=== PATIENT | female | born 1995 | race Caucasian/White ===

== ENCOUNTER 2019-10-06 11:11 | Emergency (ER) | payer OTHER, SELFPAY ==
[2019-10-06 11:17] VITALS: BP 113/65; PULSE 103; RESP 16; TEMP 38.1; O2SAT 99
--- NOTE | 2019-10-06 11:28 | ED.URI ---
HPI - URI/Sore Throat General Chief Complaint: Upper Respiratory Infection Stated Complaint: sore throat/ear pain/baker/fever Time Seen by Provider: 10/06/19 11:28 Source: patient and RN notes reviewed History of Present Illness HPI Narrative: Patient is a 23-year-old female who presents the urgent care with complaints of fever, sore throat, bilateral ear pain and headache. Patient states that is been ongoing for approximately 3 days and she is used Tylenol and cough drops for symptoms. Denies any nausea or vomiting. No other acute complaints. No acute distress noted. Patient read the plan of care. Related Data Allergies Allergy/AdvReac Type Severity Reaction Status Date / Time No Known Allergies Allergy Verified 09/02/18 10:48 Review of Systems Review of Systems: Narrative: CONSTITUTIONAL: Reports a fever EYES: Denies visual changes, redness, or discharge. ENT: Reports of sore throat and bilateral ear pain CARDIOVASCULAR: Denies chest pain, palpitations, or edema. RESPIRATORY: Denies cough or dyspnea. GASTROINTESTINAL: Denies abdominal pain, nausea, vomiting, or diarrhea. GENITOURINARY: Denies dysuria or hematuria. SKIN: Denies rash or itching. MUSCULOSKELETAL: Denies back pain, joint pain, or myalgia. NEUROLOGIC: Reports of headaches All other systems reviewed are negative, except as documented in HPI. [facility] Family History Family History (Updated 03/27/19 @ 11:54 by DOCTOR UNKNOWN) Mother Family history of diabetes mellitus in first degree relative Diabetes mellitus Grandparent Diabetes mellitus Family history of elevated blood lipids Sibling Hypertension Social History Social History Smoking status: Never smoker Alcohol intake: never Comments At the time of my signature, I reviewed and agree with the nursing past medical, surgical, social, and family history. There is no relevant family history pertinent to the patient complaint. Exam Narrative: Exam Narrative: GENERAL: This is a well-nourished, well-developed patient, in no apparent distress. HEAD: normocephalic, atraumatic. EYES: PERRL. Sclera clear/white. Vision is grossly intact. EARS: External ears normal, auditory canals clear and without drainage, tube noted to the left and TMs normal without perforation. Moderate bulging and erythema noted to the right TM. Hearing grossly intact. NOSE: External nose normal with no obvious nasal discharge, nares without redness, no rhinorrhea. THROAT: Mucous membranes moist, moderate erythema noted posterior oropharynx with notable petechiae in bilateral mild to moderate tonsillar edema and erythema with moderate postnasal drainage. No exudate or ulceration. NECK: Neck supple, non-tender without lymphadenopathy, masses or thyromegaly. CARDIOVASCULAR: Regular rate and rhythm without murmurs, gallops, or rubs. RESPIRATORY: Clear to auscultation. Breath sounds equal bilaterally. No wheezes, rales, or rhonchi. SKIN: warm, intact with no suspicious lesions or rash, good texture and turgor. NEURO: awake, alert, and oriented to person, place and time. There were no obvious focal neurologic abnormalities. EXTREMITIES: No clubbing, cyanosis, or edema. Course Vital Signs Vital signs: Vital Signs Temperature 100.6 F H 10/06/19 11:17 Pulse Rate 103 H 10/06/19 11:17 Respiratory Rate 16 10/06/19 11:17 Blood Pressure 113/65 10/06/19 11:17 Pulse Oximetry 99 10/06/19 11:17 Temperature 100.6 F H 10/06/19 11:17 Pulse Rate 103 H 10/06/19 11:17 Respiratory Rate 16 10/06/19 11:17 Blood Pressure 113/65 10/06/19 11:17 Pulse Oximetry 99 10/06/19 11:17 Reviewed MDM - URI/Sore Throat MDM Narrative Medical decision making narrative: Reviewed lab results with the patient. Aware that strep swab was positive. Advised to complete antibiotic regimen as prescribed. Make sure you are eating and drinking with the medication. Use Tylenol as needed for fever pain. Increase fluids and rest. Stay home.
== END 2019-10-06 11:36 | disposition home or self-care (01) ==
PROVIDERS: Emergency Provider Nurse Practitioner Family; PCP Internal Medicine
DX: J02.0 Streptococcal pharyngitis (principal); H66.91 Otitis media, unspecified, right ear
CPT/HCPCS: 87880; 99213; G0463

== ENCOUNTER 2021-01-16 09:08 | Outpatient (RCR) | payer OTHER, SELFPAY | END 2021-04-14 23:59 | disposition home or self-care (01) | LOC: ANHLAB 09:08 | PROVIDERS: PCP Internal Medicine; Visit Provider Obstetrics & Gynecology | DX: O20.0 Threatened abortion (principal); Z3A.00 Weeks of gestation of pregnancy not specified | CPT/HCPCS: 36415; 84702; 85461 ==

== ENCOUNTER → 2021-03-12 03:19 | Outpatient (CLI) | payer OTHER, SELFPAY ==
[2021-03-12 20:01] LABS: SARS-CoV-2 RNA PCR Negative
== END ==
PROVIDERS: PCP Internal Medicine; Visit Provider Nurse Practitioner
DX: J02.9 Acute pharyngitis, unspecified (principal); Z20.822 Contact with and (suspected) exposure to COVID-19
CPT/HCPCS: C9803; U0003; U0005

== ENCOUNTER 2021-06-05 07:54 | Emergency (ER) | payer OTHER, SELFPAY ==
--- NOTE | ~2021-06-05 | US_ITS ---
EXAMINATION: US renal BI EXAM DATE: 06/05/2021 09:49 INDICATION: Right flank pain. TECHNIQUE: Multiple grayscale and Doppler images of the kidneys were obtained (by a technologist who performed the scan) and subsequently reviewed. Comparison is made to prior examination from 09/02/2018 . FINDINGS: Right kidney: There is normal contour and echogenicity. It measures 11.8 x 5.4 x 4.4 centimeters. T here are no focal renal lesions identified. There is suspicion of hyperechoic area identified at the right ureteropelvic junction measuring 7 mm, possible stone. This does not appear to be obstructing a t present given absence of hydronephrosis and also confirmation of right ureteral jet in the bladder. Left kidney: There is normal contour and echogenicity. It measures 11.6 x 5.9 x 6.0 centimeters. Th ere are no focal renal lesions identified. There is no hydronephrosis. Bladder unremarkable. Both ureteral jets were confirmed. IMPRESSION: Echogenic structure in right UPJ, possible nonobstructing or intermittently obstructing s tone. No hydronephrosis at present. Consider KUB or CT. Reviewed, dictated and finalized at location B. F INSPECTOR IMPRESSION: Echogenic structure in right UPJ, possible nonobstructing or interm ittently obstructing stone. No hydronephrosis at present. Consider KUB or CT.
[2021-06-05 08:09] VITALS: BP 115/70; PULSE 99; RESP 16; TEMP 36.3; O2SAT 99
[2021-06-05 08:34] LABS: Add Urine Microscopic? YES; Appearance Urine Cloudy (Clear); Bacteria Urine Trace /hpf; Bilirubin Urine Negative (Negative); Blood Urine 3+ (Negative); Color Urine Yellow (Yellow); Glucose Urine UA Negative (Negative); Ketones Urine Negative (Negative); Leukocyte Esterase Ur Negative LEU/UL (Negative); Mucus Urine Rare /lpf; Nitrate Urine Negative (Negative); Protein Urine Negative (Negative); RBC Urine >75 /hpf (0-2); Specific Grav Ur 1.005 (1.001-1.035); Squamous Epithelial Cell Urine Many /hpf (Few); Transitional Epi Cells Urine Rare /hpf (None Seen); Urobilinogen Urine Negative mg/dL (<2.0)
--- NOTE | 2021-06-05 09:42 | PC.NURSE ---
135 FHT RATE MIDLINE LOWER ABD
--- NOTE | 2021-06-05 10:37 | PC.NURSE ---
ATTEMPTED TO ST CATH PT X2 WITHOUT SUCCESS FOR NEW URINE SAMPLE. UNABLE TO OBTAIN SAMPLE. DR SHEEHAN AWARE AND OK WITH NOT ATTEMPTING AGAIN
--- NOTE | 2021-06-05 11:36 | ED.GENADULT ---
HPI - General Adult General Chief complaint: Back Pain/Injury Stated complaint: back pain, 27 weeks preg Time Seen by Provider: 06/05/21 07:58 History of Present Illness HPI narrative: Patient is a 25-year-old female who presents ER with right-sided back pain. Ongoing for the last day. Intermittent in nature and radiates into her upper/mid abdomen. Associated with waves of nausea. No vomiting. Denies fevers or chills or sweats. She does have positive movement. She is 27 weeks along in her . She has no vaginal bleeding or vaginal discharge or leakage of fluid. No dysuria or hematuria. Has not had symptoms like this previously. No history of kidney stones. Related Data Allergies Allergy/AdvReac Type Severity Reaction Status Date / Time No Known Allergies Allergy Verified 06/05/21 08:13 Review of Systems Review of Systems: All systems reviewed & are unremarkable except as noted in HPI and below Constitutional: Constitutional: Denies chills, Denies fever(s) and Denies weakness ENT: Denies nasal congestion and Denies sore throat Cardiovascular: Cardiovascular: Denies chest pain and Denies radiating jaw, neck or arm pain Gastrointestinal: Gastrointestinal: Reports abdominal pain, Reports nausea and Denies vomiting Genitourinary: Genitourinary: Denies hematuria, Denies nocturia, Denies dysuria and Reports flank pain PMFSH Past Medical History Medical History (Updated 06/05/21 @ 11:40 by Sheldon Calderon MD) Kidney stones Surgical History Surgical History (Updated 07/25/20 @ 10:08 by Jyothi Patel CMA) H/O removal of cyst lt wrist H/O removal of cyst foot History of placement of ear tubes Family History Family History (Updated 03/27/19 @ 11:54 by DOCTOR UNKNOWN) Mother Family history of diabetes mellitus in first degree relative Diabetes mellitus Grandparent Diabetes mellitus Family history of elevated blood lipids Sibling Hypertension Social History Social History (Updated 07/25/20 @ 10:35 by Jyothi Patel CMA) Smoking status: Current every day smoker Tobacco type: e-cigarettes/vaping Alcohol intake: never Exam Narrative: GENERAL: Well-appearing, well-nourished, and in no acute distress. HEAD: Normocephalic, atraumatic. CHEST: Clear to auscultation. No respiratory distress. HEART: Regular rate and rhythm. Normal peripheral pulses. ABDOMEN: Soft, nontender, gravid with positive movement. Back: Mild tenderness right paraspinal musculature near the T10. No midline tenderness. No CVA tenderness. EXTREMITIES: Normal range of motion. No edema. SKIN: Warm, dry, no rash. NEURO: Alert and oriented x3. PSYCH: Normal mood and affect. Course Course Emergency Course: Patient informed of diagnosis and treatment plan. Urology has been at bedside to discuss the details of treating a patient with kidney stones during . Plan is to be discharged home and if multiple recurrent visits ER patient will have a stent placed otherwise they will try to avoid placing a stent until she has her baby. Vital Signs Vital signs: Vital Signs Temperature 97.3 F L 06/05/21 08:09 Pulse Rate 99 06/05/21 08:09 Respiratory Rate 16 06/05/21 08:09 Blood Pressure 115/70 06/05/21 08:09 Pulse Oximetry 99 06/05/21 08:09 Temperature 97.3 F L 06/05/21 08:09 Pulse Rate 99 06/05/21 08:09 Respiratory Rate 16 06/05/21 08:09 Blood Pressure 115/70 06/05/21 08:09 Pulse Oximetry 99 06/05/21 08:09 Medical Decision Making Vital Signs Vital Signs: Vital Signs Temperature 97.3 F L 06/05/21 08:09 Pulse Rate 99 06/05/21 08:09 Respiratory Rate 16 06/05/21 08:09 Blood Pressure 115/70 06/05/21 08:09 Pulse Oximetry 99 06/05/21 08:09 Temperature 97.3 F L 06/05/21 08:09 Pulse Rate 99 06/05/21 08:09 Respiratory Rate 16 06/05/21 08:09 Blood Pressure 115/70 06/05/21 08:09 Pulse Oximetry 99 06/05/21 08:09 Lab Armen
[2021-06-05 11:45] VITALS: BP 112/70; PULSE 80; RESP 16
--- NOTE | 2021-06-05 13:36 | WPDURCON ---
Assessment and Plan Assessment and plan (1) Right renal stone: Code(s): N20.0 - Calculus of kidney Status: Acute Assessment and Plan: Gestational female with renal ultrasound showing a 7 mm right renal pelvic calculus that, currently, is nonobstructing. I had a long discussion with patient and her and told to do anticipate intermittent pain is this renal calculus intermittently obstructs. If the pain becomes intractable we will consider a stent placement. Otherwise, we will wait till she delivers for definitive stone intervention. Urology Consult Note HPI Date Seen: 06/05/21 Primary Care Provider: Cyrus Mg DO Consult Narrative Narrative: Annette Ayala is a 25 year old female, who is 27 weeks with her 3rd child, presenting to the emergency department with right flank pain nausea and vomiting. She has no prior known history of urolithiasis. Imaging in the ER with a renal ultrasound shows a nonobstructing 7 mm right renal pelvic calculus. Since presentation she has felt better with spontaneous resolution of both pain and discomfort. She has no prior history of recurrent urinary tract infection or gross hematuria. Review of Systems Cardiovascular: Cardiovascular: Denies chest pain, Denies lightheadedness, Denies palpitations and Denies dyspnea Respiratory: Respiratory: Denies dyspnea Gastrointestinal: Gastrointestinal: Denies diarrhea, Denies nausea and Denies vomiting Genitourinary: Genitourinary: Denies hematuria and Denies dysuria Endocrine: Endocrine: Denies palpitations PMFSH Past Medical History Medical History Kidney stones Surgical History Surgical History H/O removal of cyst lt wrist H/O removal of cyst foot History of placement of ear tubes Family History Family History Mother Family history of diabetes mellitus in first degree relative Diabetes mellitus Grandparent Diabetes mellitus Family history of elevated blood lipids Sibling Hypertension Social History Social History Smoking status: Current every day smoker Tobacco type: e-cigarettes/vaping Alcohol intake: never Meds Home Medications and Allergies Home Medications Medication Instructions Recorded Confirmed Type hydrocodone-acetaminophen 1 tablet PO Q6H PRN #20 tablet 06/05/21 Rx ondansetron 4 mg PO Q6H PRN #10 tablet 06/05/21 Rx Allergies Allergy/AdvReac Type Severity Reaction Status Date / Time No Known Allergies Allergy Verified 06/05/21 08:13 Vital Signs Vital Signs - 24 hr 06/05/21 08:09 06/05/21 11:45 Temperature 97.3 F L Pulse Rate 99 80 Respiratory Rate 16 16 Blood Pressure 115/70 112/70 Pulse Oximetry 99 Exam Const: General: no acute distress Resp: Effort & Inspection: normal respiratory effort GI: Inspection: non-distended GI Palp: No abdominal tenderness and No Guarding due to palpation present (GI) Auscultation: normal bowel sounds Results Labs Labs: Urine 06/05/21 Range/Units 08:14 Urine Color Yellow (Yellow) Urine Appearance Cloudy H (Clear) Urine pH 8.0 (5.0-9.0) Ur Specific Marcus 1.005 (1.001-1.035) Urine Protein Negative (Negative) mg/dL Urine Glucose (UA) Negative (Negative) mg/dL
== END 2021-06-05 11:45 | disposition home or self-care (01) ==
PROVIDERS: Emergency Provider Emergency Medicine; PCP Internal Medicine
DX: O99.891 Other specified diseases and conditions complicating pregnancy (principal); N20.0 Calculus of kidney; Z87.442 Personal history of urinary calculi; O99.332 Smoking (tobacco) complicating pregnancy, second trimester; F17.290 Nicotine dependence, other tobacco product, uncomplicated; Z3A.27 27 weeks gestation of pregnancy
CPT/HCPCS: 76775; 81001; 99284

== ENCOUNTER 2021-06-07 18:38 | Observation (INO) | payer OTHER, SELFPAY ==
--- NOTE | ~2021-06-07 | US_ITS ---
EXAMINATION: US retroperitoneal comp DATE: 06/08/2021 09:48 INDICATION: Kidney stone. TECHNIQUE: Multiple ultrasound grayscale images of the kidneys were obtained. COMPARISON: Ultrasound 06/05/2021 FINDINGS: The right kidney measures 9.0 x 4.9 x 4.4 cm. The left kidney measures 9.5 x 5.0 x 4.8 cm. The kidney s demonstrate normal parenchymal echogenicity. There is no hydronephrosis. The bladder is normal. Bradley ateral urine jets from the ureters are visualized. IMPRESSION: 1. Normal kidneys. No hydronephrosis. Reviewed, dictated and finalized at location B. WELDING MACHINE OPERATOR
[2021-06-07 18:50] VITALS: BP 128/73; PULSE 85; RESP 32; TEMP 36.8; O2SAT 100
--- NOTE | 2021-06-07 19:14 | PC.NURSE ---
Report received from CRISTO Gaytan. Assumed care of patient at this time.
[2021-06-07 19:23] LABS: Basophils Percent Auto 0.1 % (0.2-1.2); Eosinophils Percent Auto 0.1 % (0-4.4); Hematocrit 38.2 % (37.0-47.0); Hemoglobin 13.4 g/dL (12.0-15.0); Immature Granulocyte Absolute 0.05 K/mm3 (0.00-0.031); Immature Granulocyte Percent A 0.4 % (0-0.5); Lymphocytes Absolute Auto 1.55 K/mm3 (0.9-3.2); Mean Corpuscular HGB Conc 35.1 g/dl (32-36); Mean Corpuscular Hemoglobin 33.2 pg (26-34); Mean Corpuscular Volume 94.6 fl (80-100); Mean Platelet Volume 9.9 fl (7.4-10.4); Monocytes Absolute Auto 0.6 K/mm3 (0.1-0.6); Monocytes Percent Auto 4.5 % (2.6-8.5); Neutrophils Absolute Auto 11.8 K/mm3 (1.3-6.7); Neutrophils Percent Auto 83.9 % (45.5-73.1); Platelet Count Result 271 k/mm3 (150-375); Red Blood Count 4.04 M/mm3 (4.2-5.4); Red Cell Distribution Width 12.4 % (11.5-14.5); White Blood Count 14.1 K/mm3 (4.5-10.0)
--- NOTE | 2021-06-07 19:30 | PC.NURSE ---
call to OB per GARO Briseno request for OB RN to come to dept and monitor baby. OB to send staff over.
[2021-06-07 19:35] LABS: Anion Gap 9 mmol/L (8-16); Blood Urea Nitrogen 5 mg/dL (7-17); Calcium 9.2 mg/dL (8.4-10.2); Carbon Dioxide 23 mmol/L (22-30); Chloride 102 mmol/L (98-107); Estimated CRCL calculation 136 ml/min; Estimated Glomerular Filt Rate > 60; Glucose 93 mg/dL (65-110); Potassium 3.7 mmol/L (3.4-5.0); Sodium 134 mmol/L (137-145)
[2021-06-07] MEDS: SODIUM CHLORIDE 0.9% IV 1,000 ML 999 ML IV CONT (19:36)
[2021-06-07] MEDS: diphenhydrAMINE HCl INJ 50 MG/ML VIAL 25 MG IV PUSH (19:37)
[2021-06-07] MEDS: METOCLOPRAMIDE HCL INJ 10 MG/2 ML VIAL IV PUSH (19:37)
[2021-06-07] MEDS: FAMOTIDINE 20 MG/2 ML VIAL IV PUSH (19:37)
[2021-06-07 19:46] LABS: Alanine Aminotransferase 17 U/L (4-35); Albumin Level 3.9 g/dL (3.5-5.1); Alkaline Phosphatase 113 U/L (38-126); Aspartate Amino Transferase 22 U/L (14-36); Bilirubin,Total 0.4 mg/dL (0.2-1.3); Lipase 64 U/L (23-300)
[2021-06-07 20:12] VITALS: BP 119/75; PULSE 70; RESP 17; O2SAT 100
[2021-06-07 20:30] VITALS: BP 111/57; PULSE 69
--- NOTE | 2021-06-07 20:50 | ED.ABDPAIN ---
HPI - Abdominal Pain General Chief Complaint: Abdominal Pain <Suzanna Yarbrough PA-C - Last Filed: 06/07/21 21:49> Stated Complaint: abd pain <Suzanna Yarbrough PA-C - Last Filed: 06/07/21 21:49> Time Seen by Provider: 06/07/21 19:13 <Suzanna Yarbrough PA-C - Last Filed: 06/07/21 21:49> Source: patient <MARIA DEL CARMEN Ludwig Last Filed: 06/07/21 21:49> Mode of arrival: ambulatory <MARIA DEL CARMEN Ludwig Last Filed: 06/07/21 21:49> Limitations: no limitations <Suzanna Yarbrough PA-C - Last Filed: 06/07/21 21:49> History of Present Illness HPI narrative: This is a 25 year old , 27 weeks that presents to the ER for abdominal pain. Patient recently diagnosed with a ureteral stone 2 days ago. Reports worsening right flank pain since this morning. Reports she has had several episodes of nausea and vomiting. Since having vomiting she has also been having some crampy upper abdominal pain. She tried to take her [place] and Zofran before arrival and threw it up. Plan with Urology was originally to observe patient. Stent placement if pain becomes intractable. Patient denies fever or dysuria. <Suzanna Yarbrough PA-C - Last Filed: 06/07/21 21:49> Related Data Allergies/Adverse Reactions: Allergies Allergy/AdvReac Type Severity Reaction Status Date / Time No Known Allergies Allergy Verified 06/08/21 07:26 <Suzanna Yarbrough PA-C - Last Filed: 06/07/21 21:49> Review of Systems Review of Systems: CONSTITUTIONAL: Denies fever GASTROINTESTINAL: Reports abdominal pain, nausea, vomiting GENITOURINARY: Denies dysuria or hematuria. <MARIA DEL CARMEN Ludwig Last Filed: 06/07/21 21:49> All systems reviewed & are unremarkable except as noted in HPI and below <MARIA DEL CARMEN Ludwig Last Filed: 06/07/21 21:49> [facility] Past Medical History Medical History: Medical History Kidney stones <Suzanna Yarbrough PA-C - Last Filed: 06/07/21 21:49> Surgical History Surgical History: Surgical History H/O removal of cyst lt wrist H/O removal of cyst foot History of placement of ear tubes <Suzanna Yarbrough PA-C - Last Filed: 06/07/21 21:49> Family History Family History: Family History Mother Family history of diabetes mellitus in first degree relative Diabetes mellitus Grandparent Diabetes mellitus Family history of elevated blood lipids Sibling Hypertension <Suzanna Yarbrough PA-C - Last Filed: 06/07/21 21:49> Social History Social History: Social History Smoking status: Current every day smoker Tobacco type: e-cigarettes/vaping Alcohol intake: never Substance use: current Substance use type: marijuana Spiritual care concerns: No <MARIA DEL CARMEN Ludwig Last Filed: 06/07/21 21:49> Exam Narrative: GENERAL: Well-appearing, well-nourished, and in mild acute distress due to pain. HEAD: Normocephalic, atraumatic. EYES: EOMI. ENT: Mucous membranes moist. CHEST: Clear to auscultation. No respiratory distress. No wheezes rales or rhonchi HEART: Regular rate and rhythm. No murmur heard. Normal peripheral pulses. ABDOMEN: Gravid, nontender, normal active bowel sounds. No CVA tenderness EXTREMITIES: Normal range of motion. No edema. SKIN: Warm, dry, no rash. NEURO: No focal deficits. Alert and oriented x3. PSYCH: Normal mood and affect <MARIA DEL CARMEN Ludwig Last Filed: 06/07/21 21:49> Course Consultations Consultation #1: Spoke with Dr. Toledo about patient and workup who will admit patient for further observation and pain control. Okay with IV pain medications as needed <MARIA DEL CARMEN Ludwig Last Filed: 06/07/21 21:49> Date: 06/07/21 <Suzanna Yarbrough PA-C - Last Filed: 06/07/21 21:49> Time:
--- NOTE | 2021-06-07 20:55 | PC.NURSE ---
Patient ambulates to the bathroom with a steady gait. Patient states her pain is still there and requesting more pain medications. Suzanna JOYCE notified.
[2021-06-07 21:04] LABS: Add Urine Microscopic? YES; Appearance Urine Cloudy (Clear); Bilirubin Urine Negative (Negative); Blood Urine 2+ (Negative); Color Urine Yellow (Yellow); Glucose Urine UA Negative (Negative); Ketones Urine 1+ mg/dL (Negative); Leukocyte Esterase Ur Negative LEU/UL (Negative); Mucus Urine Rare /lpf; Nitrate Urine Negative (Negative); Protein Urine 1+ mg/dL (Negative); RBC Urine >75 /hpf (0-2); Specific Grav Ur 1.016 (1.001-1.035); Squamous Epithelial Cell Urine Occasional /hpf (Few); Urobilinogen Urine Negative mg/dL (<2.0)
[2021-06-07] MEDS: MORPHINE SULFATE (*CRX) 2 MG/ML INJ IV PUSH (21:19)
[2021-06-07 22:30] VITALS: BP 104/69; PULSE 91; RESP 18; TEMP 36.7; O2SAT 100
[2021-06-07 22:34] VITALS: BP 104/69; PULSE 91; RESP 18; TEMP 36.7; O2SAT 100
[2021-06-07] MEDS: ONDANSETRON INJ 4 MG/2 ML VIAL IV PUSH (22:54)
[2021-06-07] MEDS: SODIUM CHLORIDE 0.9% IV 1,000 ML 125 ML IV CONT (22:54)
--- NOTE | 2021-06-07 23:01 | ADMGEN ---
This patient, Annette Ayala, was admitted to 2 Medical Room 260-01. Patient/family oriented to hospital policies and general routines including ID bracelet, bed and alarms, visiting hours, pain management, procedures, bathroom and other care routines, personal items, smoking policy, room service/diet, and visiting hours. Information on how to activate the Rapid Response Team has been discussed. Patient/Family are encouraged to report perceived risks to care and to ask questions if they do not understand what they are told or what they should do.
[2021-06-07 23:09] VITALS: BP 126/68; PULSE 70; RESP 16; TEMP 36.8; O2SAT 100; BMI 37.9
[2021-06-07] MEDS: MORPHINE SULFATE (*CRX) 4 MG/ML INJ 2 MG IV PUSH (23:17)
[2021-06-08] MEDS: MORPHINE SULFATE (*CRX) 4 MG/ML INJ 2 MG IV PUSH (01:53)
[2021-06-08 05:37] VITALS: BP 100/44; PULSE 74; RESP 16; TEMP 36.2; O2SAT 99
[2021-06-08] MEDS: SODIUM CHLORIDE 0.9% IV 1,000 ML 125 ML IV CONT (06:27)
--- NOTE | 2021-06-08 08:13 | WPDURCON ---
Assessment and Plan Assessment and plan (1) Right renal stone: Code(s): N20.0 - Calculus of kidney Status: Acute Assessment and Plan: She is currently pain-free. I am going to repeat her ultrasound to evaluate for hydronephrosis as well as ureteral jet. I suspect she is going to have intermittent pain throughout her . I offered her 2 options. First option would be observation with pain medication as needed. She understands she may have intermittent bouts of pain but this would save her procedure. The other option I offered her is a ureteral stent. She understands this will alleviate the stone pain. She may be treated for irritation in the bladder and blood in the urine. She also understands the stent will need to be changed monthly throughout her with sedation and small amounts of fluoroscopy. I told her this in general be safer the but does carry small risks. She is going to consider her options. I am going to fever ultrasound once that is done. We will decide this morning but she is going to do. She is leaning towards observation. I did tell her if she gets readmitted for recurrent pain then observation would no longer be a viable solution. (2) Intrauterine : Code(s): Z34.90 - Encounter for supervision of normal , unspecified, unspecified trimester Status: Acute Urology Consult Note HPI Date Seen: 06/08/21 Requesting Physician: Shlomo Toledo MD Primary Care Provider: Cyrus Mg DO Consult Narrative Narrative: Annette Ayala is a 25 year old female who is 27 weeks . She has no prior history of nephrolithiasis. She presented the emergency room on Tuesday with right flank pain. An ultrasound was performed which showed a 7 mm nonobstructive stone in the right renal pelvis and near the right UPJ. She was eventually pain free and sent home in stable condition. She did well at home on Tuesday. By Tuesday afternoon she had recurrence of right-sided pain with nausea and vomiting. She denied any fevers or chills. She denied any symptoms of urinary tract infection. She re-presented to the emergency room and is admitted for further evaluation. She is now currently pain-free. She rates her pain level at a 0 Review of Systems Review of Systems: All systems reviewed & are unremarkable except as noted in HPI and below PMFSH Past Medical History Medical History Kidney stones Surgical History Surgical History H/O removal of cyst lt wrist H/O removal of cyst foot History of placement of ear tubes Family History Family History Mother Family history of diabetes mellitus in first degree relative Diabetes mellitus Grandparent Diabetes mellitus Family history of elevated blood lipids Sibling Hypertension Social History Social History Smoking status: Current every day smoker Tobacco type: e-cigarettes/vaping Alcohol intake: never Substance use: current Substance use type: marijuana Spiritual care concerns: No Meds Home Medications and Allergies Home Medications Medication Instructions Recorded Confirmed Type hydrocodone-acetaminophen 1 tablet PO Q6H PRN #20 tablet 06/05/21 06/07/21 Rx ondansetron 4 mg PO Q6H PRN #10 tablet 06/05/21 06/07/21 Rx Allergies Allergy/AdvReac Type Severity Reaction Status Date / Time No Known Allergies Allergy Verified 06/08/21 07:26 Vital Signs Vital Signs - 24 hr 06/07/21 18:50 06/07/21 20:12 06/07/21 20:30 Temperature 98.2 F Pulse Rate 85 70 69 Respiratory Rate 32 H 17 Blood Pressure 128/73 119/75 Blood Pressure [Right Arm] 111/57 L Pulse Oximetry 100 100 06/07/21 22:30 06/07/21 22:34 06/07/21 23:09 Temperature 98
--- NOTE | 2021-06-08 12:50 | PM.IMHP ---
H&P: HPI History of Present Illness Date/Time: 06/08/21 12:50 This patient is a 25-year-old multiparous female at 27 weeks gestation who presented the emergency department with severe flank pain, nausea, vomiting. She was admitted for observation. She is known to have a renal calculi. She denies any vaginal bleeding or cramping. She denies any abnormal vaginal discharge. She reports good movement. Chief Complaint: flank pain Review of Systems Review of Systems: All systems reviewed & are unremarkable except as noted in HPI and below Constitutional: Constitutional: Denies chills, Denies fatigue, Denies fever(s) and Denies weakness Eyes: Eyes: Denies blurry vision, Denies change in vision, Denies loss of peripheral vision, Denies loss of vision, Denies other visual disturbances and Denies eye pain ENT: Denies vertigo, Denies dizziness, Denies hearing loss, Denies mouth pain, Denies nasal obstruction, Denies neck mass and Denies neck pain Cardiovascular: Cardiovascular: Denies chest pain, Denies diaphoresis, Denies syncope, Denies leg edema and Denies dyspnea Respiratory: Respiratory: Denies chest congestion, Denies cough, Denies hemoptysis, Denies dyspnea and Denies wheezing Gastrointestinal: Gastrointestinal: Denies abdominal pain, Denies constipation, Denies diarrhea, Denies nausea and Denies vomiting Genitourinary: Genitourinary: Denies hematuria, Denies change in libido, Denies nocturia, Denies genital lesions, Denies flank pain and Denies urinary urgency Musculoskeletal: Musculoskeletal: Denies abnormal gait, Denies back pain, Denies myalgias, Denies arthralgias, Denies joint swelling, Denies muscle weakness and Denies neck pain Integumentary/Breasts: Skin/Breast: Denies swelling, Denies breast pain, Denies breast mass, Denies dry skin, Denies nipple discharge, Denies unusual bruising and Denies jaundice Neurologic: Denies Neuro-related abnormal movements, Denies Abnormal speech present, Denies abnormal gait, Denies behavioral changes, Denies confusion, Denies vertigo, Denies dizziness, Denies syncope, Denies loss of vision, Denies memory loss, Denies convulsions and Denies weakness Psychiatric: Psychiatric: Denies abnormal sleep pattern, Denies behavioral changes, Denies change in libido, Denies confusion, Denies depression, Denies anhedonia and Denies memory loss Endocrine: Endocrine: Reports no additional endocrine complaints, Denies change in libido and Denies fatigue Hematologic/Lymphatic: Hematologic/Lymphatic: Reports no additional hematologic/lymphatic complaints Allergic/Immunologic: Allergic/Immunologic: Reports no additional allergic/immunologic complaints and Denies wheezing PMFSH Past Medical History Medical History Kidney stones Surgical History Surgical History H/O removal of cyst lt wrist H/O removal of cyst foot History of placement of ear tubes Family History Family History Mother Family history of diabetes mellitus in first degree relative Diabetes mellitus Grandparent Diabetes mellitus Family history of elevated blood lipids Sibling Hypertension Social History Social History Smoking status: Current every day smoker Tobacco type: e-cigarettes/vaping Alcohol intake: never Substance use: current Substance use type: marijuana Spiritual care concerns: No Meds Home Medications and Allergies Home Medications Medication Instructions Recorded Confirmed Type hydrocodone-acetaminophen 1 tablet PO Q6H PRN #20 tablet 06/05/21 06/07/21 Rx ondansetron 4 mg PO Q6H PRN #10 tablet 06/05/21 06/07/21 Rx Allergies Allergy/AdvReac Type Severity Reaction Status Date / Time No Known Allergies Allergy Verified 06/08/21 07:26 Vital Signs Vital Signs - 24
--- NOTE | 2021-06-25 21:15 | PM.DS ---
DS: Admitting Diagnosis Discharge Date 06/08/21 Admitting Diagnosis flank pain DS: Discharge Diagnosis Discharge Diagnosis (1) : Qualifiers: Weeks of gestation: 27 weeks Qualified Code(s): Z3A.27 - 27 weeks gestation of Code(s): Z34.90 - Encounter for supervision of normal , unspecified, unspecified trimester Status: Acute (2) Right renal stone: Code(s): N20.0 - Calculus of kidney Status: Acute DS: Summary Hospital Course Hospital Course: this patient is a 25-year-old multiparous female 27 weeks gestation with a kidney stone was admitted for flank pain. She was observed for period of time her pain improved. She was seen by Urology and she was discharged shortly after. She was stable throughout, her was stable t Time Spent with Patient Time attestation: Total time spent providing and/or coordinating discharge services: Discharge Plan Discharge Consulting providers: Hansel Lees ; Gaurav Bowie V. Discharging Clinician: Shlomo Toledo Patient Disposition: Home, Self-Care Activity: pelvic rest Diet: regular Patient Instructions: Antibiotic Form, How to Stop Smoking (DC), Kidney Stones (DC), Pain Management (DC), Ureteral Stent Placement (DC) Stand Alone Forms: General Discharge Information Follow-up/Referrals: Shlomo Toledo MD [Physician] - Discharge Medications: Discontinued hydrocodone-acetaminophen 5-325 mg tablet 1 tablet PO Q6H PRN (Reason: pain) Qty: 20 RF: 0 ondansetron 4 mg tablet,disintegrating 4 mg PO Q6H PRN (Reason: nausea and vomiting) Qty: 10 RF: 0 Date of admission: 06/07/21 21:25 Primary Care Provider: Cyrus Mg Admitting Provider: Shlomo Toledo Attending physician on admission: Shlomo Toledo Condition: Stable
== END 2021-06-08 13:27 | disposition home or self-care (01) ==
LOC: ANHED 21:43 → ANH2MED 22:22
PROVIDERS: Physician Assistant; Admitting Provider Obstetrics & Gynecology; Emergency Provider Emergency Medicine; PCP Internal Medicine; Visit Provider Obstetrics & Gynecology
DX: O26.832 Pregnancy related renal disease, second trimester (principal); N20.0 Calculus of kidney; R11.2 Nausea with vomiting, unspecified; O99.332 Smoking (tobacco) complicating pregnancy, second trimester; F17.290 Nicotine dependence, other tobacco product, uncomplicated; O99.322 Drug use complicating pregnancy, second trimester; F12.90 Cannabis use, unspecified, uncomplicated; Z3A.27 27 weeks gestation of pregnancy
CPT/HCPCS: 36415; 76770; 80048; 80076; 81001; 83690; 85025; 96361; 96365; 96374; 96375; 96376; 99285; G0378; J0131; J1200; J2270; J2405; J2765; J7030

== ENCOUNTER 2021-08-09 13:28 | Observation (INO) | payer OTHER, SELFPAY ==
[2021-08-09] VITALS (52 sets, daily range): BP systolic 91–130; BP diastolic 40–87; PULSE 101–144; TEMP 37.7–37.9; O2SAT 96–100
[2021-08-09] MEDS: LACTATED RINGERS 1,000 ML 999 ML IV CONT (14:20)
[2021-08-09 14:39] LABS: Hematocrit 32.7 % (37.0-47.0); Hemoglobin 11.2 g/dL (12.0-15.0); Mean Corpuscular HGB Conc 34.3 g/dl (32-36); Mean Corpuscular Hemoglobin 31.9 pg (26-34); Mean Corpuscular Volume 93.2 fl (80-100); Mean Platelet Volume 10.3 fl (7.4-10.4); Platelet Count Result 223 k/mm3 (150-375); Red Blood Count 3.51 M/mm3 (4.2-5.4); White Blood Count 8.4 K/mm3 (4.5-10.0)
[2021-08-09 15:08] LABS: Add Urine Microscopic? YES; Appearance Urine Clear (Clear); Bacteria Urine Trace /hpf; Bilirubin Urine Negative (Negative); Blood Urine Negative (Negative); Color Urine Straw (Yellow); Glucose Urine UA Negative (Negative); Ketones Urine 1+ mg/dL (Negative); Leukocyte Esterase Ur Negative LEU/UL (Negative); Mucus Urine Rare /lpf; Nitrate Urine Negative (Negative); Protein Urine Negative (Negative); RBC Urine 0-2 /hpf (0-2); Squamous Epithelial Cell Urine Occasional /hpf (Few); Urobilinogen Urine Negative mg/dL (<2.0); WBC Urine 0-3 /hpf
[2021-08-09 15:27] LABS: Influenza B QL RT-PCR Negative (Negative)
[2021-08-09 15:28] LABS: Influenza A QL RT-PCR Negative (Negative)
--- NOTE | 2021-08-09 15:57 | OBADM ---
This patient, Annette Ayala, admitted to the OB room Labor/Delivery/Recovery 106 for observation. Patient/family oriented to hospital policies and general routines including ID bracelet, bed and alarms, visiting hours, pain management, procedures, bathroom and other care routines, personal items, smoking policy, room service/diet, and visiting hours. Patient/Family are encouraged to report perceived risks to care and to ask questions if they do not understand what they are told or what they should do.
[2021-08-09 16:19] LABS: Band Neutrophils Percent 3 % (0-6); Lymphocytes Absolute Manual 0.42 K/mm3 (1.1-4.5); Monocytes Absolute Manual 0.42 K/mm3 (0.1-0.90); Monocytes Percent Manual 5 % (3-9); Neutrophils Absolute Manual 7.56 K/mm3 (1.7-7.2); Neutrophils Percent Manual 87 % (46-73); Platelet Estimate Adequate (Adequate); Total Cells Counted 100
[2021-08-09 16:40] LABS: SARS-CoV-2 RNA PCR Positive
--- NOTE | 2021-08-12 18:08 | PM.OBTRLD ---
OB - Triage/Final Diagnosis Visit Information Date of evaluation: 08/09/21 Reason for evaluation: other (fever) Comments/Additional reasons for admission: I have assessed the risk for this patient, Annette Ayala, and determined that she would benefit from observation care. Evaluation Laboratory results: Laboratory Tests 08/09/21 08/09/21 08/09/21 14:24 14:25 14:28 WBC 8.4 RBC 3.51 L Hgb 11.2 L Hct 32.7 L MCV 93.2 MCH 31.9 MCHC 34.3 RDW 13.0 Plt Count 223 MPV 10.3 Immature Gran % (Auto) Not Reportable Neut % (Auto) Not Reportable Lymph % (Auto) Not Reportable [place] % (Auto) Not Reportable Eos % (Auto) Not Reportable Baso % (Auto) Not Reportable Lymph # (Auto) Not Reportable [place] # (Auto) Not Reportable Eos # (Auto) Not Reportable Baso # (Auto) Not Reportable Abs Immat Gran (auto) Not Reportable Absolute Neuts (auto) Not Reportable Absolute Nucleated RBC Not Reportable Total Counted 100 Neutrophils % (Manual) 87 H Band Neutrophils % 3 Lymphocytes % (Manual) 5.0 L Monocytes % (Manual) 5 Nucleated RBC % Not Reportable Abs Neuts (Manual) 7.56 H Abs Lymphs (Manual) 0.42 L Abs Monocytes (Manual) 0.42 Platelet Estimate Adequate Urine Color Straw Urine Appearance Clear Urine pH 8.0 Ur Specific [place] 1.010 Urine Protein Negative Urine Glucose (UA) Negative Urine Ketones 1+ H Ur Blood (Man) Negative Urine Nitrate Negative Urine Bilirubin Negative Urine Urobilinogen Negative Leukocyte Esterase Rfl Negative Urine RBC 0-2 Urine WBC 0-3 Ur Squamous Epith Cells Occasional Urine Bacteria Trace Urine Mucus Rare Influenza A (RT-PCR) Influenza B (RT-PCR) SARS-CoV-2 RNA (RT-PCR) Positive A 08/09/21 14:28 WBC RBC Hgb Hct MCV MCH MCHC RDW Plt Count MPV Immature Gran % (Auto) Neut % (Auto) Lymph % (Auto) [place] % (Auto) Eos % (Auto) Baso % (Auto) Lymph # (Auto) [place] # (Auto) Eos # (Auto) Baso # (Auto) Abs Immat Gran (auto) Absolute Neuts (auto) Absolute Nucleated RBC Total Counted Neutrophils % (Manual) Band Neutrophils % Lymphocytes % (Manual) Monocytes % (Manual) Nucleated RBC % Abs Neuts (Manual) Abs Lymphs (Manual) Abs Monocytes (Manual) Platelet Estimate Urine Color Urine Appearance Urine pH Ur Specific [place] Urine Protein Urine Glucose (UA) Urine Ketones Ur Blood (Man) Urine Nitrate Urine Bilirubin Urine Urobilinogen Leukocyte Esterase Rfl Urine RBC Urine WBC Ur Squamous Epith Cells Urine Bacteria Urine Mucus Influenza A (RT-PCR) Negative Influenza B (RT-PCR) Negative SARS-CoV-2 RNA (RT-PCR) Final Diagnosis (1) Fever: Code(s): R50.9 - Fever, unspecified Status: Acute
== END 2021-08-09 17:10 | disposition home or self-care (01) ==
PROVIDERS: Advanced Practice Midwife; Admitting Provider Obstetrics & Gynecology; PCP Internal Medicine; Visit Provider Obstetrics & Gynecology
DX: O98.513 Other viral diseases complicating pregnancy, third trimester (principal); U07.1 COVID-19; Z3A.36 36 weeks gestation of pregnancy
CPT/HCPCS: 36415; 81001; 85025; 87502; 96361; 96365; C9803; G0378; G0379; J0131; J7120; U0003; U0005

== ENCOUNTER 2021-08-30 14:35 | Inpatient (IN) | payer OTHER, SELFPAY ==
[2021-08-30] VITALS (66 sets, daily range): BP systolic 96–131; BP diastolic 13–93; PULSE 68–153; RESP 18; TEMP 36.4–36.8; O2SAT 100; BMI 41.2
--- OUTSIDE RECORDS SUMMARY | 2021-08-30 14:43 | XMS_ITS | Encounter Summary ---
:1995 Author Care Team Providers Name Role Phone Cyrus Mg MD Primary Care Provider [phone] Reason for Visit None recorded. Assessment and Plan 1. Maternal obesity complicating , childbirth and the puerperium, antepartum ? non-stress test Discussion Note: None recorded.Patient educational handouts: No information available. Plan of Care Reminders Provider Appointments Induction Suly Michelle, 09/01/2021 CNM 6:00AM ? Ob Routine Suly Michelle, 09/04/2021 CNM 11:30AM Lab None ? ? recorded. Referral None ? ? recorded. Procedures None ? ? recorded. Surgeries None ? ? recorded. Imaging Non-stress [place] Test 08/28/2021 Medications Name Start Date ? ? hydrocodone 5 mg-acetaminophen 325 mg tablet ? ondansetron 4 mg disintegrating tablet ? ? Medications Administered None recorded. Vitals None recorded. Results Lab Results None recorded. Allergies Code Code System Name Reaction Severity Onset NKDA ? ?
--- OUTSIDE RECORDS SUMMARY | 2021-08-30 14:43 | XMS_ITS | Encounter Summary ---
:1995 Author Care Team Providers Name Role Phone Cyrus Mg MD Primary Care Provider [phone] Reason for Visit None recorded. Assessment and Plan 1. Maternal obesity complicating , childbirth and the puerperium, antepartum ? US, obstetric, biophysical profile + non-stress test Discussion Note: None recorded.Patient educational handouts: No information available. Plan of Care Reminders Provider Appointments Induction Suly Michelle, 09/01/2021 CNM 6:00AM ? Ob Routine Suly Michelle, 09/04/2021 CNM 11:30AM Lab None recorded. ? ? Referral None recorded. ? ? Procedures None recorded. ? ? Surgeries None recorded. ? ? Imaging US, Obstetric, Rafael lorenzo Biophysical Profile + 07/29/2021 Non-stress Test Medications Name Start Date ? ? hydrocodone 5 mg-acetaminophen 325 mg tablet ? ondansetron 4 mg disintegrating tablet ? ? Medications Administered None recorded. Vitals None recorded. Results Lab Results None recorded. Allergies Code Code System Name Reaction S
--- OUTSIDE RECORDS SUMMARY | 2021-08-30 14:43 | XMS_ITS | Encounter Summary ---
:1995 Author Care Team Providers Name Role Phone Cyrus Mg MD Primary Care Provider [phone] Reason for Visit None recorded. Assessment and Plan 1. Maternal drug exposure ? non-stress test Discussion Note: None recorded.Patient educational handouts: No information available. Plan of Care Reminders Provider Appointments Induction Suly Michelle, 09/01/2021 CNM 6:00AM ? Ob Routine Suly Michelle, 09/04/2021 CNM 11:30AM Lab None ? ? recorded. Referral None ? ? recorded. Procedures None ? ? recorded. Surgeries None ? ? recorded. Imaging Non-stress [place] Test 07/22/2021 Medications Name Start Date ? ? hydrocodone 5 mg-acetaminophen 325 mg tablet ? ondansetron 4 mg disintegrating tablet ? ? Medications Administered None recorded. Vitals Blood Pressure 118/73 mm[Hg] Results Lab Results None recorded. Allergies Code Code System Name Reaction Severity Onset NKDA ?
--- OUTSIDE RECORDS SUMMARY | 2021-08-30 14:43 | XMS_ITS | Encounter Summary ---
:1995 Author Care Team Providers Name Role Phone Cyrus Mg MD Primary Care Provider [phone] Reason for Visit OB visit OB [id number] EDC 09/06/2021 LMP 11/30/2020 Assessment and Plan Assessment Note Patient is _33__weeks . Dis cussed plan. 1. Routine care Discussion Note: None recorded.Patient educational handouts: No information available. Plan of Care Reminders Provider Appointments Induction Suly Michelle, 09/01/2021 CNM 6:00AM ? Ob Routine Suly Michelle, 09/04/2021 CNM 11:30AM Lab None ? ? recorded. Referral None ? ? recorded. Procedures None ? ? recorded. Surgeries None ? ? recorded. Imaging None ? ? recorded. Medications Name Start Date ? ? hydrocodone 5 mg-acetaminophen 325 mg tablet ? ondansetron 4 mg disintegrating tablet ? ? Medications Administered None recorded. Vitals Height Weight BMI Blood Pressure 5 ft 2 in 207 lbs 37.9 kg/m2 118/73 mm[Hg] Results Lab Results None recorded. Allergies Code Code System Name Reaction Sever
--- OUTSIDE RECORDS SUMMARY | 2021-08-30 14:43 | XMS_ITS | Encounter Summary ---
:1995 Author Care Team Providers Name Role Phone Cyrus Mg MD Primary Care Provider [phone] Reason for Visit None recorded. Assessment and [...] US, Obstetric, Rafael lorenzo Biophysical Profile + 08/28/2021 Non-stress Test Medications Name Start Date ? ? hydrocodone 5 mg-acetaminophen 325 mg tablet ? ondansetron 4 mg disintegrating tablet ? ? Medications Administered None recorded. Vitals None recorded. Results Lab Results None recorded. Allergies Code Code System Name Reaction S
--- OUTSIDE RECORDS SUMMARY | 2021-08-30 14:43 | XMS_ITS | Encounter Summary ---
:1995 Author Care Team Providers Name Role Phone Cyrus Mg MD Primary Care Provider [phone] Reason for Visit OB visit OB [id number] EDC 09/06/2021 LMP 11/30/2020 Assessment and Plan Assessment Note Patient is _38__weeks . Dis cussed plan. 1. Routine care [...] BMI Blood Pressure 5 ft 2 in 218 lbs 39.9 kg/m2 126/83 mm[Hg] Results Lab Results None recorded. Allergies Code Code System Name Reaction Terri
--- OUTSIDE RECORDS SUMMARY | 2021-08-30 14:43 | XMS_ITS | Encounter Summary ---
:1995 Author Care Team Providers Name Role Phone Cyrus Mg MD Primary Care Provider [phone] Reason for Visit None recorded. Assessment and [...] ? recorded. Imaging Non-stress [place] Test 07/29/2021 Medications Name Start Date ? ? hydrocodone 5 mg-acetaminophen 325 mg tablet ? ondansetron 4 mg disintegrating tablet ? ? Medications Administered None recorded. Vitals None recorded. Results Lab Results None recorded. Allergies Code Code System Name Reaction Severity Onset NKDA ? ? ? Problems Name Status Onset Date Source
--- OUTSIDE RECORDS SUMMARY | 2021-08-30 14:43 | XMS_ITS | Encounter Summary ---
:1995 Author Care Team Providers Name Role Phone Cyrus Mg MD Primary Care Provider [phone] Reason for Visit None recorded. Assessment and Plan 1. Maternal obesity complicating , childbirth and the puerperium, antepartum ? US, obstetric, follow-up ? US, obstetric, biophysical profile + non-stress test Discussion Note: None recorded.Patient educational handouts: No information available. Plan of Care Reminders Provider Appointments Induction Suly Michelle, 09/01/2021 CNM 6:00AM ? Ob Routine Suly Michelle, 09/04/2021 CNM 11:30AM Lab None recorded. ? ? Referral None recorded. ? ? Procedures None recorded. ? ? Surgeries None recorded. ? ? Imaging US, Obstetric, Rafael lorenzo Follow-up 08/21/2021 ? US, Obstetric, Rafael lorenzo Biophysical Profile + 08/21/2021 Non-stress Test Medications Name Start Date ? ? hydrocodone 5 mg-acetaminophen 325 mg tablet ? ondansetron 4 mg disintegrating tablet ? ?
--- OUTSIDE RECORDS SUMMARY | 2021-08-30 14:43 | XMS_ITS | Encounter Summary ---
:1995 Author Care Team Providers Name Role Phone Cyrus Mg MD Primary Care Provider [phone] Reason for Visit OB visit OB [id number] EDC 09/06/2021 LMP 11/30/2020 Assessment and Plan Assessment Note Patient is __35_weeks . Dis cussed plan. 1. Routine care [...] BMI Blood Pressure 5 ft 2 in 212 lbs 38.8 kg/m2 114/75 mm[Hg] Results Lab Results None recorded. Allergies Code Code System Name Reaction Terri
--- OUTSIDE RECORDS SUMMARY | 2021-08-30 14:43 | XMS_ITS | Encounter Summary ---
:1995 Author Care Team Providers Name Role Phone Cyrus Mg MD Primary Care Provider [phone] Reason for Visit OB visit OB [id number] EDC 09/06/2021 LMP 11/30/2020 Assessment and Plan Assessment Note Patient is _37__weeks . Dis cussed plan. 1. Routine care [...] BMI Blood Pressure 5 ft 2 in 219 lbs 40.1 kg/m2 121/87 mm[Hg] Results Lab Results None recorded. Allergies Code Code System Name Reaction Terri
--- OUTSIDE RECORDS SUMMARY | 2021-08-30 14:43 | XMS_ITS ---
:1995 Author Care Team Providers Name Role Phone ROMEL FRASER MD Primary Care Provider [phone] Allergies Code Code System Name Reaction Severity Status Onset NKDA ? Medications Name Status Start Date Stop Date ? ? acetaminophen 300 mg-codeine 30 mg tablet Completed ? 01/27/2021 TAKE 1 OR 2 TABLETS EVERY 4 6 HOURS BUT NO MORE THAN 10 TABLETS DAILY amoxicillin 500 mg capsule Completed ? 01/27 TAKE 1 CAPSULE BY MOUTH THREE TIMES A DAY UNTILL GONE amoxicillin 875 mg-potassium clavulanate 125 mg tablet Completed ? 03/25/2021 TAKE 1 TABLET BY MOUTH TWICE A DAY [id number]-vqbwjpru 50 mg-300 mg-40 mg capsule Com pleted ? 03/25/2021 TAKE 1 CAPSULE BY MOUTH EVERY 4 HOURS cephalexin 500 mg capsule Completed ? 2020 TAKE 1 CAPSULE BY MOUTH ONCE EVERY 6 HOURS clobetasol 0.05 % topical ointment Completed ? 03/25/2021 APPLY THIN COAT TO AFFECTED AREA TWICE A DAY duloxetine 30 mg capsule,delayed release Completed ? 01/27/2021 TAKE 1 CAPSULE BY MOUTH EVERY DAY hydrocodone 5 mg-acetaminophen 325 mg Active ? Not available tablet naproxen 500 mg tablet Completed ? TAKE 1 TABLET BY MOUTH TWICE A DAY FOR HEADACHE nitrofurantoin monohydrate/macrocrystals 100 mg capsule Complete d ? 01/27/2021 TAKE 1 CAPSULE EVERY 12 HOURS BY MOUTH FOR 5 DAYS. ondansetron 4 mg disintegrating tablet Active ? Not available Active ? Not available sertralin
--- OUTSIDE RECORDS SUMMARY | 2021-08-30 14:43 | XMS_ITS | Encounter Summary ---
:1995 Author Care Team Providers Name Role Phone Cyrus Mg MD Primary Care Provider [phone] Reason for Visit None recorded. Assessment and [...] ? Imaging US, Obstetric, Rafael lorenzo Follow-up 07/22/2021 ? US, Obstetric, Rafael lorenzo Biophysical Profile + 07/22/2021 Non-stress Test Medications Name Start Date ? ? hydrocodone 5 mg-acetaminophen 325 mg tablet ? ondansetron 4 mg disintegrating tablet ? ?
--- OUTSIDE RECORDS SUMMARY | 2021-08-30 14:43 | XMS_ITS | Encounter Summary ---
:1995 Author Care Team Providers Name Role Phone Cyrus Mg MD Primary Care Provider [phone] Reason for Visit None recorded. Assessment and [...] ? recorded. Imaging Non-stress [place] Test 08/21/2021 Medications Name Start Date ? ? hydrocodone 5 mg-acetaminophen 325 mg tablet ? ondansetron 4 mg disintegrating tablet ? ? Medications Administered None recorded. Vitals None recorded. Results Lab Results None recorded. Allergies Code Code System Name Reaction Severity Onset NKDA ? ?
--- OUTSIDE RECORDS SUMMARY | 2021-08-30 14:43 | XMS_ITS | Encounter Summary ---
:1995 Author Care Team Providers Name Role Phone Cyrus Mg MD Primary Care Provider [phone] Reason for Visit None recorded. Assessment and Plan 1. Maternal obesity complicating , childbirth and the puerperium, antepartum 2. Maternal drug exposure ? non-stress test Discussion Note: None recorded.Patient educational handouts: No information available. Plan of Care Reminders Provider Appointments Induction Suly Michelle, 09/01/2021 CNM 6:00AM ? Ob Routine Suly Michelle, 09/04/2021 CNM 11:30AM Lab None ? ? recorded. Referral None ? ? recorded. Procedures None ? ? recorded. Surgeries None ? ? recorded. Imaging Non-stress [place] Test 08/05/2021 Medications Name Start Date ? ? hydrocodone 5 mg-acetaminophen 325 mg tablet ? ondansetron 4 mg disintegrating tablet ? ? Medications Administered None recorded. Vitals None recorded. Results Lab Results None recorded. Allergies Code Code System Name Reaction Severity Onset
--- OUTSIDE RECORDS SUMMARY | 2021-08-30 14:43 | XMS_ITS | Encounter Summary ---
:1995 Author Care Team Providers Name Role Phone Cyrus Mg MD Primary Care Provider [phone] Reason for Visit OB visit OB [id number] EDC 09/06/2021 LMP 11/30/2020 Assessment and Plan Assessment Note Patient is __34_weeks . Dis cussed plan. 1. Routine care [...] BMI Blood Pressure 5 ft 2 in 213 lbs 39 kg/m2 108/72 mm[Hg] Results Lab Results None recorded. Allergies Code Code System Name Reaction Terri
--- OUTSIDE RECORDS SUMMARY | 2021-08-30 14:43 | XMS_ITS | Encounter Summary ---
:1995 Author Care Team Providers Name Role Phone Cyrus Mg MD Primary Care Provider [phone] Reason for Visit OB visit 30w2d Assessment and Plan 1. Routine care Discussion Note: None recorded.Patient [...] ft 2 in 207 lbs 37.9 kg/m2 134/83 mm[Hg] Results Lab Results None recorded. Allergies Code Code System Name Reaction Severity Onset NKDA ? ? ? Problems
--- OUTSIDE RECORDS SUMMARY | 2021-08-30 14:43 | XMS_ITS | Encounter Summary ---
:1995 Author Care Team Providers Name Role Phone Cyrus Mg MD Primary Care Provider [phone] Reason for Visit None recorded. Assessment and [...] US, Obstetric, Rafael lorenzo Biophysical Profile + 08/05/2021 Non-stress Test Medications Name Start Date ? ? hydrocodone 5 mg-acetaminophen 325 mg tablet ? ondansetron 4 mg disintegrating tablet ? ? Medications Administered None recorded. Vitals None recorded. Results Lab Results None recorded. Allergies Code Code System Name Reaction S
--- OUTSIDE RECORDS SUMMARY | 2021-08-30 14:44 | XMS_ITS ---
:1995 Author Care Team Providers Name Role Phone ROMEL FRASER MD Primary Care Provider [phone] Allergies Code Code System Name Reaction Severity Status Onset NKDA ? Medications Name Status Start Date Stop Date ? ? amoxicillin 500 mg-potassium clavulanate 125 mg tablet Unknown ? Not available TK 1 T PO Q 8 H FOR 10 DAYS amoxicillin 875 mg tablet Active ? Not av ailable amoxicillin 875 mg-potassium clavulanate 125 mg tablet Active ? Not available TK 1 T PO BID azithromycin 500 mg tablet Active ? Not a vailable TK 1 T PO QD FOR 5 DAYS cefuroxime axetil 500 mg tablet Unknown ? Not available TK 1 T PO BID cyclobenzaprine 10 mg tablet Active ? Not available TK 1 T PO QHS dextroamphetamine-amphetamine 20 mg Active ? Not available tablet fluconazole 150 mg tablet Unknown ? Not av ailable hydrocodone 5 mg-acetaminophen 325 mg Unknown ? Not available tablet hydroxyzine pamoate 25 mg capsule Active ? Not available ibuprofen 600 mg tablet Active ? Not avai lable TK 1 T PO Q 6 H PRN methylprednisolone 4 mg tablets in a dose pack Unknown ? Not available FPD metoclopramide 10 mg tablet Unknown ? Not available Metrogel Vaginal 0.75 % Unknown ? Not avai lable Insert 1 applicatorful by vaginal route for 5 days. naproxen 500 mg tablet Active ? Not avail able TK 1 T PO BID PRN
--- OUTSIDE RECORDS SUMMARY | 2021-08-30 14:44 | XMS_ITS | Encounter Summary ---
:1995 Author Care Team Providers Name Role Phone Cyrus Mg MD Primary Care Provider [phone] Reason for Visit None recorded. Assessment and Plan 1. Maternal obesity complicating , childbirth and the puerperium, antepartum ? US, obstetric, follow-up Discussion Note: None recorded.Patient educational handouts: No information available. Plan of Care Reminders Provider Appointments Induction Suly Michelle, 09/01/2021 CNM 6:00AM ? Ob Routine Suly Michelle, 09/04/2021 CNM 11:30AM Lab None ? ? recorded. Referral None ? ? recorded. Procedures None ? ? recorded. Surgeries None ? ? recorded. Imaging [facility] Obstetric, Follow-up 06/29/2021 Medications Name Start Date ? ? hydrocodone 5 mg-acetaminophen 325 mg tablet ? ondansetron 4 mg disintegrating tablet ? ? Medications Administered None recorded. Vitals None recorded. Results Lab Results None recorded. Allergies Code Code System Name Reaction Severity Onset NKDA ?
--- OUTSIDE RECORDS SUMMARY | 2021-08-30 14:44 | XMS_ITS | Encounter Summary ---
:1995 Author Care Team Providers Name Role Phone Cyrus Mg MD Primary Care Provider [phone] Reason for Visit OB visit OB [id number] EDC 09/06/2021 LMP 11/30/2020 Assessment and Plan Assessment Note Patient is _28__weeks . Dis cussed plan. 1. Routine care [...] BMI Blood Pressure 5 ft 2 in 203 lbs 37.1 kg/m2 107/72 mm[Hg] Results Lab Results None recorded. Allergies Code Code System Name Reaction Terri
--- OUTSIDE RECORDS SUMMARY | 2021-08-30 14:44 | XMS_ITS ---
:1995 Author Care Team Providers Name Role Phone ROMEL FRASER MD Primary Care Provider [phone] Allergies Code Code System Name Reaction Severity Status Onset NKDA ? Medications Name Status Start Date Stop Date ? ? Adderall Active ? Not available amoxicillin 875 mg tablet Active ? Not av ailable azithromycin 500 mg tablet Active ? Not a vailable TK 1 T PO QD FOR 5 DAYS dextroamphetamine-amphetamine 20 mg tablet Active ? Not available hydroxyzine pamoate 25 mg capsule Active ? Not available uzybrwaz-sjlwpqpjp-gnvhpvdmp 3.5 mg-10,000 Active ? Not available unit/mL-1 % ear drops,susp prednisone 20 mg tablet Active ? Not avai lable Problems No Known Problems Procedures Notes: tubes in both ears oct 04 Results Lab Results None recorded. Past Encounters None recorded. Social History Tobacco Smoking Status Current Some Day Smoker Vaccine List Notes: flu shot 2016 Plan of Care Reminders Provider Appointments None ? ? recorded. Lab None ? ? recorded. Referral None ? ? recorded. Procedures None ? ? recorded. Surgeries None
--- NOTE | 2021-08-30 15:02 | LDADM ---
This patient, Annette Ayala, was admitted to Labor/Delivery/Recovery 106 on 08/30/21 at 14:35. Plans for labor, pain management and were discussed with patient. Patient/family oriented to hospital policies and general routines including ID bracelet, bed and alarms, visiting hours, pain management, procedures, bathroom and other care routines, personal items, smoking policy, room service/diet and guest tray routines, infant security routines, and visiting hours. Patient/Family are encouraged to report perceived risks to care and to ask questions if they do not understand what they are told or what they should do. See OBIX for further documentation.
[2021-08-30] MEDS: AMPICILLIN 2 GM/NS 100 ML 2 GM/100 ML BAG IVPB (15:11)
[2021-08-30] MEDS: LACTATED RINGERS 1,000 ML 125 ML IV CONT ×2 (15:13→15:34)
--- NOTE | 2021-08-30 15:24 | WPDANESEPP ---
Anes - Eval Pre Procedure Procedure: labor epidural Date/Time: 08/30/21 15:24 Pre Op Diagnosis: Contractions Patient Data Age: 25 Gender: F Height: 1.55 m Weight: 99 kg Last Vital Signs Pulse 75 08/30/21 15:16 BP 129/74 08/30/21 15:16 Allergies Allergy/AdvReac Type Severity Reaction Status Date / Time No Known Allergies Allergy Verified 06/08/21 07:26 Laboratory Tests 08/30/21 08/30/21 15:14 15:14 WBC Pending RBC Pending Hgb Pending Hct Pending MCV Pending MCH Pending MCHC Pending RDW Pending Plt Count Pending MPV Pending Immature Gran % (Auto) Pending Neut % (Auto) Pending Lymph % (Auto) Pending [place] % (Auto) Pending Eos % (Auto) Pending Baso % (Auto) Pending Lymph # (Auto) Pending [place] # (Auto) Pending Eos # (Auto) Pending Baso # (Auto) Pending Abs Immat Gran (auto) Pending Absolute Neuts (auto) Pending Absolute Nucleated RBC Pending Nucleated RBC % Pending RPR Pending Patient hx anesthesia problems: none Family hx anesthesia problems: none Results Review: All pre-operative results and documents have been reviewed as part of the pre-operative evaluation. [facility] Past Medical History Medical History (Updated 08/30/21 @ 15:32 by Mi Garcia CRNA) Anxiety and depression GERD (gastroesophageal reflux disease) Kidney stones Morbid obesity Surgical History Surgical History H/O removal of cyst lt wrist H/O removal of cyst foot History of placement of ear tubes Family History Family History Mother Diabetes mellitus Family history of diabetes mellitus in first degree relative Pacemaker Grandparent Family history of elevated blood lipids Diabetes mellitus Sibling Hypertension Social History Social History Smoking status: Current every day smoker Tobacco type: e-cigarettes/vaping Alcohol intake: never Substance use: never Substance use type: marijuana Spiritual care concerns: No Exam Day of Procedure 08/30/21 15:24 Patient weight: morbidly obese Heart: regular rate and rhythm Lungs: normal air movement Airway: Mallampati scale class III Neurological: alert and oriented
[2021-08-30 15:26] LABS: Basophils Percent Auto 0.2 % (0.2-1.2); Eosinophils Absolute Auto 0.1 K/mm3 (0-0.3); Eosinophils Percent Auto 0.6 % (0-4.4); Hematocrit 38.1 % (37.0-47.0); Hemoglobin 12.7 g/dL (12.0-15.0); Immature Granulocyte Absolute 0.03 K/mm3 (0.00-0.031); Immature Granulocyte Percent A 0.3 % (0-0.5); Lymphocytes Absolute Auto 1.88 K/mm3 (0.9-3.2); Lymphocytes Percent Auto 16.2 % (18.3-44.2); Mean Corpuscular HGB Conc 33.3 g/dl (32-36); Mean Corpuscular Hemoglobin 31.8 pg (26-34); Mean Corpuscular Volume 95.3 fl (80-100); Mean Platelet Volume 10.5 fl (7.4-10.4); Monocytes Absolute Auto 0.5 K/mm3 (0.1-0.6); Monocytes Percent Auto 4.5 % (2.6-8.5); Neutrophils Absolute Auto 9.1 K/mm3 (1.3-6.7); Neutrophils Percent Auto 78.2 % (45.5-73.1); Platelet Count Result 285 k/mm3 (150-375); Red Cell Distribution Width 13.8 % (11.5-14.5); White Blood Count 11.6 K/mm3 (4.5-10.0)
[2021-08-30] MEDS: fentaNYL CITRATE INJ (*CRX) 100 MCG/2 ML VIAL 50 MCG IV PUSH (15:32)
[2021-08-30 16:42] LABS: Amphetamine Screen Urine Negative (Negative); Barbiturate Screen Urine Negative (Negative); Benzodiazepines Screen Urine Negative (Negative); Cannabinoid Screen Urine Positive (Negative); Cocaine Screen Urine Negative (Negative); Methadone Screen Urine Negative (Negative); Opiate Screen Urine Negative (Negative); Phencyclidine Screen Urine Negative (Negative)
--- NOTE | 2021-08-30 19:28 | P.PCNOB_ITS ---
OB - Delivery Note Procedure Delivery date: 08/30/21 Procedure: vaginal delivery Induction method: None Delivery augmentation: Rupture of Membranes Delivery monitor: External FHT and External Uterine Route of delivery: Episiotomy description: None Laceration Description: None Specimen: No Quantitative Blood Loss (ml): 50 Anesthesia type: Epidural Disposition: floor [facility] [place] Baby Date of : 08/30/21 Time of : 19:09 Weeks of gestation at delivery: 39 gender: Female Weight (pounds): 6 Weight (ounces): 10 presentation: vertex position: Left Occiput Anterior Placenta delivery description: Spontaneous Cord Vessel Description: 3 Vessels score one minute: 9 score five minutes: 9 Narrative: mother and baBY skin to skin in stable condition
--- NOTE | 2021-08-30 22:27 | ADMGEN ---
This patient, Annette Ayala, was admitted to OB 2nd Floor Room 284-00. Patient/family oriented to hospital policies and general routines including ID bracelet, bed and alarms, visiting hours, pain management, procedures, bathroom and other care routines, personal items, smoking policy, room service/diet, and visiting hours. Information on how to activate the Rapid Response Team has been discussed. Patient/Family are encouraged to report perceived risks to care and to ask questions if they do not understand what they are told or what they should do.
--- NOTE | 2021-08-30 22:39 | PC.NURSE ---
2220 pt unable to void
[2021-08-30] MEDS: ACETAMINOPHEN 325 MG TABLET 650 MG PO (23:10)
[2021-08-30] MEDS: IBUPROFEN 600 MG TABLET PO (23:11)
[2021-08-30] MEDS: LANOLIN (LANSINOH) 7.5 GM CREAM 1 APPLIC TOPICAL (23:12)
[2021-08-30] MEDS: WITCH HAZEL 40 PADS 1 PAD TOPICAL (23:12)
[2021-08-31] VITALS: BP 104/83; PULSE 92; RESP 18; TEMP 36.6
[2021-08-31 04:45] VITALS: BP 105/57; PULSE 83; RESP 18; TEMP 36.7
[2021-08-31 05:21] LABS: Hematocrit 29.3 % (37.0-47.0); Hemoglobin 9.8 g/dL (12.0-15.0)
[2021-08-31 07:21] LABS: Rapid Plasma Reagin Non-Reactive (NonReactive)
--- NOTE | 2021-08-31 07:22 | PM.IMHP ---
H&P: HPI History of Present Illness Date/Time: 08/31/21 07:22This patient is a 25-year-old multiparous female with a term gestation previous delivery who wants female sterilization. We have agreed for repeat delivery and bilateral salpingectomy. She understands the this wrist surgery. She understands that injuries may occur that result in hospitalization, more surgery, severe illness. She denies any headache, blurry vision, epigastric pain she denies any chest pain or shortness of breath. She denies any nausea vomiting, fever, chills. Chief Complaint: term gestation Review of Systems Review of Systems: All systems reviewed & are unremarkable except as noted in HPI and below Constitutional: Constitutional: Denies chills, Denies fatigue, Denies fever(s) and Denies weakness Eyes: Eyes: Denies blurry vision, Denies change in vision, Denies loss of peripheral vision, Denies loss of vision, Denies other visual disturbances and Denies eye pain ENT: Denies vertigo, Denies dizziness, Denies hearing loss, Denies mouth pain, Denies nasal obstruction, Denies neck mass and Denies neck pain Cardiovascular: Cardiovascular: Denies chest pain, Denies diaphoresis, Denies syncope, Denies leg edema and Denies dyspnea Respiratory: Respiratory: Denies chest congestion, Denies cough, Denies hemoptysis, Denies dyspnea and Denies wheezing Gastrointestinal: Gastrointestinal: Denies abdominal pain, Denies constipation, Denies diarrhea, Denies nausea and Denies vomiting Genitourinary: Genitourinary: Denies hematuria, Denies change in libido, Denies nocturia, Denies genital lesions, Denies flank pain and Denies urinary urgency Musculoskeletal: Musculoskeletal: Denies abnormal gait, Denies back pain, Denies myalgias, Denies arthralgias, Denies joint swelling, Denies muscle weakness and Denies neck pain Integumentary/Breasts: Skin/Breast: Denies swelling, Denies breast pain, Denies breast mass, Denies dry skin, Denies nipple discharge, Denies unusual bruising and Denies jaundice Neurologic: Denies Neuro-related abnormal movements, Denies Abnormal speech present, Denies abnormal gait, Denies behavioral changes, Denies confusion, Denies vertigo, Denies dizziness, Denies syncope, Denies loss of vision, Denies memory loss, Denies convulsions and Denies weakness Psychiatric: Psychiatric: Denies abnormal sleep pattern, Denies behavioral changes, Denies change in libido, Denies confusion, Denies depression, Denies anhedonia and Denies memory loss Endocrine: Endocrine: Reports no additional endocrine complaints, Denies change in libido and Denies fatigue Hematologic/Lymphatic: Hematologic/Lymphatic: Reports no additional hematologic/lymphatic complaints Allergic/Immunologic: Allergic/Immunologic: Reports no additional allergic/immunologic complaints and Denies wheezing PMFSH Past Medical History Medical History (Updated 08/31/21 @ 07:24 by Shlomo Toledo MD) Anxiety and depression GERD (gastroesophageal reflux disease) Kidney stones Morbid obesity Surgical History Surgical History (Updated 08/31/21 @ 07:24 by Shlomo Toledo MD) H/O removal of cyst lt wrist H/O removal of cyst foot History of placement of ear tubes Family History Family History Mother Diabetes mellitus Family history of diabetes mellitus in first degree relative Pacemaker Grandparent Family history of elevated blood lipids Diabetes mellitus Sibling Hypertension Social History Social History Smoking status: Current every day smoker Tobacco type: e-cigarettes/vaping Alcohol intake: never Substance use: never Substance use type: marijuana Spiritual care concerns: No Meds Home Medications and Allergies Home Medications Medication Instructions Recorded Confirmed Type ranitidine HCl [Zantac 75] 75 mg PO PRN PRN 08/30/21
--- NOTE | 2021-08-31 07:25 | WPDHPUPDATE1 ---
History and Physical Update Update Date/Time: 08/31/21 07:25 History and Physical has been reviewed, including an updated exam of the patient. There are NO changes in the patient's condition. Risks, benefits, and alternatives have been discussed and questions answered. Patient agrees to proceed with procedure.
--- NOTE | 2021-08-31 07:37 | PM.OBPNVD ---
OB - PN: Subj Subjective Date/time seen: 08/31/21 07:37 Patient comments: no complaints baby status: doing well OB - PN: Obj Data Labs CBC & Chem 7: 08/31/21 04:47 Labs: Laboratory Results - last 24 hr 08/30/21 08/30/21 08/30/21 15:14 15:14 15:14 WBC 11.6 H RBC 4.00 L Hgb 12.7 Hct 38.1 MCV 95.3 MCH 31.8 MCHC 33.3 RDW 13.8 Plt Count 285 MPV 10.5 H Immature Gran % (Auto) 0.3 Neut % (Auto) 78.2 H Lymph % (Auto) 16.2 L [place] % (Auto) 4.5 Eos % (Auto) 0.6 Baso % (Auto) 0.2 Lymph # (Auto) 1.88 [place] # (Auto) 0.5 Eos # (Auto) 0.1 Baso # (Auto) 0.0 Abs Immat Gran (auto) 0.03 Absolute Neuts (auto) 9.1 H Absolute Nucleated RBC 0.0 Nucleated RBC % 0.0 Urine Opiates Screen Urine Methadone Screen Ur Barbiturates Screen Ur Phencyclidine Scrn Ur Amphetamine Screen U Benzodiazepines Scrn Urine Cocaine Screen U Cannabinoids Screen RPR Non-reactive Blood Type O Positive Antibody Screen Negative 08/30/21 08/31/21 16:21 04:47 WBC RBC Hgb 9.8 L Hct 29.3 L MCV MCH MCHC RDW Plt Count MPV Immature Gran % (Auto) Neut % (Auto) Lymph % (Auto) [place] % (Auto) Eos % (Auto) Baso % (Auto) Lymph # (Auto) [place] # (Auto) Eos # (Auto) Baso # (Auto) Abs Immat Gran (auto) Absolute Neuts (auto) Absolute Nucleated RBC Nucleated RBC % Urine Opiates Screen Negative Urine Methadone Screen Negative Ur Barbiturates Screen Negative Ur Phencyclidine Scrn Negative Ur Amphetamine Screen Negative U Benzodiazepines Scrn Negative Urine Cocaine Screen Negative U Cannabinoids Screen Positive A RPR Blood Type Antibody Screen OB - PN A/P Plan day: 1 Plan: routine care Time Spent With Patient Time: Total time spent is greater than 50% in coordination of care (as documented) at patient's floor/unit and/or counseling patient: Time with patient: less than 15 minutes Review of Systems Review of Systems: All systems reviewed & are unremarkable except as noted in HPI and below Exam Narrative: Fundus firm and vaginal flow controlled. No lower ext redness, warmth, or edema. Negative homans. Const: General: comfortable Chest: Breast/axilla inspection: normal inspection of the breasts Resp: Effort & Inspection: normal respiratory effort Cardio: Rate: regular rate GI: GI Palp: Yes Soft to palpation Psych: Appearance: grossly normal Affect: normal affect Attitude: cooperative Thought content: Yes Normal thought content present Judgement: Good judgement present (Psych)
[2021-08-31 08:00] VITALS: BP 97/58; PULSE 88; RESP 16; TEMP 36.6; O2SAT 100
[2021-08-31] MEDS: MULTIVIT/MIN/PREN/FOL AC/IRON TABLET 1 TAB PO (08:13)
[2021-08-31] MEDS: POLYSACCHARIDE IRON COMPLEX 150 MG CAPSULE PO ×2 (08:13→17:17)
[2021-08-31] MEDS: ACETAMINOPHEN 325 MG TABLET 650 MG PO (08:13)
[2021-08-31] MEDS: DOCUSATE SODIUM 100 MG CAPSULE PO (08:13)
--- NOTE | 2021-08-31 09:31 | W.PM.PROC2 ---
Procedure Note - Detailed Date of Procedure 08/31/21 Pre-op Diagnosis Term gestation, previous delivery, unwanted fertility Post-op Diagnosis same ( incidental cystotomy) Procedure Performed Low-transverse section, repair of incidental cystotomy. Surgeon Shlomo Toledo MD Anesthesia spinal Indications term gestation, previous , unwanted fertility, incidental cystotomy Findings Normal gestational maternal anatomy, average size infant, normal Apgars. Description of Procedure The patient was taken the operating room. She was prepped and draped in dorsal supine position with a leftward tilt. This was done after spinal anesthetic was applied. A low-transverse skin incision was made and carried down till of the fascia with the knife. The fascial incision was made with the knife. The fascial incision was extended laterally with Kramer scissors. The fascia was tented upward superiorly and inferiorly the rectus muscles were dissected off bluntly. The rectus muscles were the midline. The preperitoneal fat and peritoneum were dissected open bluntly at the superior aspect of the rectus muscles. The peritoneal incision was extended superior and inferior with good position of bladder. The uterine incision was made with a scalpel down to the level of the amniotic cavity. The amniotic cavity was entered bluntly. The was delivered. The cord was clamped and cut and the was handed off to waiting pediatric staff. Cord bloods were obtained. The placenta was removed manually. The uterus was exteriorized. The uterus was cleared of all clots, debris and membranes. The uterus was closed in 0 Vicryl running lock fashion. An imbricating over a was placed along the incision line as well. Cystotomy was observed on the dome of the bladder. The tissue the bladder in the area of the uterus was extremely thin and friable. This appeared to happen at the time of delivery. A partial bladder flap was performed before the DeLee some tissue on the right side that appeared to be fat was left in place. After delivery this area was noted to be bladder tissue and a to 0.5 cm defect was noted in that area. It was closed with 2 imbricating layers of 2-0 Vicryl. The bladder was filled with saline that was dyed with methylene blue. There was a thin area adjacent to it on the dome of the bladder. Infertility layers of suture were used to bolster this area. After that repair was filled a final time and the bladder was without defect, the thin area that that was translucent and blue previously was now covered with surrounding interstitial tissue. During repair of the bladder who hemorrhage began in the left lower uterus in the area of the uterine arteries. It appeared to be venous. LigaSure cautery was used to make hemostatic. Each fallopian tube was grasped and raised with a Wishon. With from the underlying venous structures. The mesosalpinx between the tube and the rest the adnexa was cauterized and transected with LigaSure cautery. It was performed from the distal tube near the ovary in a stepwise fashion towards the cornua. The tube at the cornua was cauterized transected with LigaSure cautery. This was performed in a bilateral fashion. A Jt-Pereira drain was placed in the pelvis between the bladder and the uterus and vagina. It was in the area of the hemorrhage also. The large sharp trocar was placed through the abdominal wall on the right side just lateral to the incision site. It was pushed through from the intra-abdominal area anterior to the uterus. Was held in place with a Prolene suture. Drain was placed and the redundant tubing was withdrawn through the wall. The uterus was returned to the abdomen. The gutters were cleared of all clots and debris. The fascia was closed with 0 Vicryl running fashion. The subcutaneous tissue was irrigated pinpoint bleeders were cauterized. The skin was c
--- NOTE | 2021-08-31 09:56 | WPDANLDPN2 ---
Anes-Prog Note L&D Date/Time: 08/31/21 09:56 Comfortable throughout: labor and delivery Neuraxial method: epidural Epidural/Spinal procedure site: clean & non-tender Neuro status: Neuro function grossly intact. Cardiovascular status: normal Respiratory status: normal Airway patency: baseline Mental status: baseline Post-Op hydration status: normal Vital Signs: Last Vital Signs Temp 36.6 C 08/31/21 08:00 Pulse 88 08/31/21 08:00 Resp 16 08/31/21 08:00 BP 97/58 L 08/31/21 08:00 Pulse Ox 100 08/31/21 08:00 Pain score (VAS): 07/27 I/O: Intake & Output 08/30/21 08/31/21 08/31/21 23:59 07:59 15:59 Intake Total 1000 500 Balance 1000 500 Post-procedural complaints: none Patient feedback: Patient satisfied with anesthetic care.
--- NOTE | 2021-08-31 10:14 | PC.NURSE ---
Dr. Toledo entered a surgical note and post op orders on this patient on 08/31/21 by mistake.
[2021-08-31 12:00] VITALS: BP 119/83; PULSE 88; RESP 16; TEMP 36.8; O2SAT 99
[2021-08-31] MEDS: IBUPROFEN 600 MG TABLET PO (12:39)
[2021-08-31 16:00] VITALS: BP 129/86; PULSE 80; RESP 16; TEMP 36.4; O2SAT 100
[2021-08-31 18:40] VITALS: BP 122/81; PULSE 83; RESP 18; TEMP 36.8
--- NOTE | 2021-09-01 07:37 | PM.OBPNVD ---
OB - PN: Subj Subjective Date/time seen: 09/01/21 07:37 Patient comments: no complaints baby status: doing well OB - PN: Obj Data Labs CBC & Chem 7: 08/31/21 04:47 OB - PN A/P Plan day: 2 Plan: routine care and discharge home (F/U in 4 weeks) Time Spent With Patient Time: Total time spent is greater than 50% in coordination of care (as documented) at patient's floor/unit and/or counseling patient: Time with patient: less than 15 minutes Review of Systems Review of Systems: All systems reviewed & are unremarkable except as noted in HPI and below Exam Narrative: Fundus firm and vaginal flow controlled. No lower ext redness, warmth, or edema. Negative homans. Const: General: comfortable Chest: Breast/axilla inspection: normal inspection of the breasts Resp: Effort & Inspection: normal respiratory effort Cardio: Rate: regular rate GI: GI Palp: Yes Soft to palpation Psych: Appearance: grossly normal Affect: normal affect Attitude: cooperative Thought content: Yes Normal thought content present Judgement: Good judgement present (Psych)
--- NOTE | 2021-09-01 07:40 | P.DS_ITS ---
DS: Admitting Diagnosis Discharge Date 09/01/20 Admitting Diagnosis Labor OB - DS: Summary OB Procedures : None OB Procedures Intrapartum: Spontaneous Vag Delivery OB Procedures: : None Time Spent with Patient Time attestation: Total time spent providing and/or coordinating discharge services: Discharge Plan Discharge Attending physician on discharge: Suly Michelle Discharging Clinician: Maria A Washington Patient Disposition: Home, Self-Care Activity: pelvic rest Diet: as tolerated Patient Instructions: Antibiotic Form Stand Alone Forms: General Discharge Information Follow-up/Referrals: Maria A Washington CNM [Certified Nurse Employee Development Manager] - Discharge Medications: New polysaccharide iron complex 150 mg iron Capsule 150 mg PO DAILY Qty: 30 RF: 0 Continued ranitidine HCl [Zantac 75] 75 mg Tablet 75 mg PO PRN PRN (Reason: Acid Reflux) RF: 0 Adult Low Dose Aspirin 81 mg Tablet 81 mg PO DAILY RF: 0 Date of admission: 08/30/21 14:35 Primary Care Provider: Cyrus Mg Admitting Provider: Shlomo Toledo Attending physician on admission: Suly Michelle Condition: Stable
[2021-09-01 08:00] VITALS: BP 136/88; PULSE 74; RESP 16; TEMP 37.3; O2SAT 99
[2021-09-01] MEDS: BENZOCAINE 20% AER SPR (*SP) 56 GM CAN 1 SPRAY TOPICAL (09:50)
[2021-09-01] MEDS: WITCH HAZEL 40 PADS 1 PAD TOPICAL (09:50)
[2021-09-01] MEDS: DOCUSATE SODIUM 100 MG CAPSULE PO (09:50)
[2021-09-01] MEDS: POLYSACCHARIDE IRON COMPLEX 150 MG CAPSULE PO (09:51)
[2021-09-01] MEDS: IBUPROFEN 600 MG TABLET PO (09:51)
[2021-09-01] MEDS: MULTIVIT/MIN/PREN/FOL AC/IRON TABLET 1 TAB PO (09:51)
[2021-09-01 10:05] VITALS: PULSE 74; RESP 16; O2SAT 99
--- NOTE | 2021-09-01 11:32 | PCCCNOTE ---
Addendum entered by MUNIR Chauhan 09/01/21 14:40: Received email confirmation that DCFS will contact the family and offer a Child Welfare Referral for services and supports, in reference to [place] [id number]. Original Note: Care Coordination Consult: Met with pt. and JIMBO Hamm. This is pt.'s 3rd child. She has two boys at home. Pt. has all necessary supplies for the baby at home including a crib, carseat, clothing, diapers etc. Pt. plans to supplement breast feeding with formula as needed and is working with RN on breast feeding techniques. Pt. plans to utilize [facility] services at discharge and is set to contact the [place] office. Did offer resources which pt. was agreeable to take. Spoke about pt.'s positive marijuana screening at admission and she is also aware that baby Gema tested positive as well. Pt. reports recreational marijuana sporatically through her . Has not used in the last several days. Denies any other substance use. Plans to speak with her bolter helper regarding questions she has about and using marijuana. Pt. denies any further needs. Did submit online DCFS report for marijuana use, [place] [id number]. Pt. is discharging home today.
--- NOTE | 2021-09-01 13:19 | PC.NURSE ---
1136 - RN welcomed into the room. Introductions made to the father of the baby (FOB). Discussed early feeding cues. demonstrated REM and dad observed. RN unwrapped/undressed for stimulation for feeding. Mother is not present in the room at this time and dad states she is outside. Feeding cue handout given to dad and he voiced understanding to call for assistance when mom is back and feeding signs to eat are visualized.
--- NOTE | 2021-09-01 13:57 | PC.NURSE ---
[id number] Introductions were made and mother led the discussion of her desires to feeding her baby and how it has been going so far. Mother has been attempting to breastfeed and supplementing with formula using a bottle. Reviewed handwashing to prevent infection before and after taking care of her baby. Mother verbalizes she is able to independently latch . Discussed how to watch for early feeding cues, place infant skin to skin, then feeding baby when is ready or every 2-3 hours. Reviewed positioning/alignment with the use of the mom and baby guide. Encouraged mother with infant to the left breast in football position using nipple to nose with asymmetrical 140-degree latch. She denies any nipple discomfort. Reviewed there is to be no pain with , how to detach from the breast, visuals to watch for to confirm effective . Reviewed effective latching with resources visual handout and mom and baby guide. Nipple tenderness is relieved with improving positioning and effective latching. Use of warm, wet compress to nipples and air dry for improved comfort. Infant was able to maintain effective latch. Mother has verbalized understanding watching for feeding cues for responsive feeding or how to stimulate to breastfeed. Reviewed intake, output, jaundice, weight and blood sugar and baby is meeting the requirement at this time. Using the resource of the mom and baby guide RN reviewed reasons to know when to call her or her baby's care provider. Mother voiced understanding to feed when she sees feeding cues, 8-12 times in 24 hours approximately every 2-3 hours from the start of the last feeding for milk production and review mom and baby guide as a reference. Mother demonstrated knowledge of teaching latching to the right breast in football position and denies discomfort. Infant has appropriate suck/swallow ratios with rocking motion. Reported to primary RN.
[2021-09-02 10:28] VITALS: BP 124/77; PULSE 80; RESP 16; TEMP 37.3; O2SAT 100
== END 2021-09-01 13:27 | disposition home or self-care (01) | DRG 807 ==
LOC: ANHOB2 09-01 10:22 → ANHLDR 09-02 09:27 → ANHOB2 09-02 09:27
PROVIDERS: Advanced Practice Midwife; Admitting Provider Obstetrics & Gynecology; PCP Internal Medicine; Visit Provider Obstetrics & Gynecology
DX: O99.62 Diseases of the digestive system complicating childbirth (principal); Z37.0 Single live birth; Z3A.39 39 weeks gestation of pregnancy; K21.9 Gastro-esophageal reflux disease without esophagitis; O99.344 Other mental disorders complicating childbirth; F41.8 Other specified anxiety disorders
CPT/HCPCS: 36415; 80307; 85014; 85018; 85025; 86592; 86850; 86900; 86901; A9270; J0290; J2795; J3010; J7120

== ENCOUNTER → 2021-10-24 00:17 | Outpatient (CLI) | payer OTHER, SELFPAY ==
[2021-10-24 11:24] LABS: SARS-CoV-2 RNA PCR Negative
== END ==
PROVIDERS: PCP Internal Medicine; Visit Provider Obstetrics & Gynecology
DX: Z01.812 Encounter for preprocedural laboratory examination (principal); Z20.822 Contact with and (suspected) exposure to COVID-19
CPT/HCPCS: C9803; U0003; U0005

== ENCOUNTER 2021-10-28 00:23 | Day surgery (SDC) | payer OTHER, SELFPAY ==
[2021-10-20 13:21] VITALS: BMI 34.2
--- NOTE | 2021-10-20 13:32 | PC.NURSE ---
Report to the Outpatient Waiting Room, entrance under the green pavilion located off [facility], at time __729 on date __10/28/2021 . OR Time: . - You and your visitor will be asked a series of questions to screen for COVID 19 for your protection. - A mask is required within the hospital. Preoperative COVID Testing Requirements: COVID Test is needed and scheduled for 10/24/21 @ 0930-Please be prompt. If not COVID vaccinated a COVID test must be conducted within 72 hours of surgery and patient is asked to isolate self from time of testing until procedure. You will go to the [facility] for your COVID testing. The [facility] is located at the corner of [address] [facility]. You will only be called if COVID results are positive and your surgeon may reschedule your elective surgery date. Patients may have clear liquids (water, carbonated beverages, clear teas, apple juice) until 3 hours prior to surgery with a maximum of 20 ounces. - No food from midnight until time of surgery - Infants may have breast milk until 4 hours before surgery, infant formula 6 hours prior to surgery. - Children will be allowed to drink immediately following surgery. If applicable, please bring a bottle or sippy cup to assist with drinking. Juice, water, soda, and popsicles are readily available. For infants on formula, please bring formula the day of surgery. Pacifiers are allowed. Take the following medications with a SIP of water the morning of surgery: ___n/a Medications to discontinue per physician n/a Date to take last dose__n/a Please no make-up, nail [place], hairspray, perfume, deodorant, or body powder the day of surgery. No jewelry (including any body piercings) or valuables the day of surgery, leave them at home. Please take a shower or bath the night before, or the morning of, surgery with an antibacterial soap. Wear comfortable, loose fitting clothing. Children are encouraged to wear pajamas. - Jewelry must be removed prior to entering the operating room. Rings and piercings that are not removed may be cut off. - The hospital will not accept responsibility for valuables. - Please leave all valuables, including medications, at home the day of surgery. If you are going home after surgery, a licensed stacker driver must drive you home. - NO public transportation without another adult. - We recommend that an adult stay with you for 24 hours following discharge. - We also recommend that you do not drive, make important decision, drink alcoholic beverages, or take any drugs that were not prescribed by your health care provider for at least 24 hours after your discharge time. For Pediatric surgeries, we recommend two adults accompany the child home (only one inside the building at this time). One visitor will be allowed to accompany the patient into the hospital. Patients visitor will be instructed to remain with patient at all times or leave the building. We will allow the visitor to come back to the postoperative area when patient is ready. Follow any additional instructions given to you from your surgeon. Telephone instructions given to ____patient and asked if any additional questions and then verbalized understanding. Patient advised to call surgeon office or pre surgery nurse liaison [phone] if any additional questions.
[2021-10-28] VITALS (8 sets, daily range): BP systolic 104–116; BP diastolic 64–77; PULSE 56–86; RESP 14–18; TEMP 36.2–36.7; O2SAT 94–100
--- NOTE | 2021-10-28 06:37 | WPDANESEPPF ---
Anes - Initial Pre Proc Eval Procedure: Operation Date: 10/28/21 07:30 Proposed Procedures p Laparoscopic Bilateral Salpingectomy - Shlomo Toledo MD Date/Time: 10/28/21 06:37 Surgeon: Shlomo Toledo MD Pre Op Diagnosis: Vol Sterilization Patient Data Age: 25 Gender: F Height: 1.57 m Weight: 85 kg Allergies Allergy/AdvReac Type Severity Reaction Status Date / Time No Known Allergies Allergy Verified 10/20/21 13:20 Home Medications Medication Instructions Recorded Confirmed Type No Home Medications 10/14/21 10/20/21 History Patient hx anesthesia problems: none Family hx anesthesia problems: none Results Review: All pre-operative results and documents have been reviewed as part of the pre-operative evaluation. [facility] Past Medical History Medical History Anxiety and depression GERD (gastroesophageal reflux disease) Kidney stones Morbid obesity Surgical History Surgical History H/O removal of cyst lt wrist H/O removal of cyst foot History of placement of ear tubes Family History Family History Mother Diabetes mellitus Family history of diabetes mellitus in first degree relative Pacemaker Grandparent Family history of elevated blood lipids Diabetes mellitus Sibling Hypertension Social History Social History Smoking status: Current every day smoker Tobacco type: e-cigarettes/vaping Additional smoking assessment comments: VAPS DAILY Alcohol intake: never Substance use: current Substance use type: marijuana Other substance usage details: MARIJUANA MONTHLY Living arrangements: with family Spiritual care concerns: No Anes - Eval Final PreProcedure Day of Procedure 10/28/21 06:37 Patient weight: obese Heart: regular rate and rhythm Lungs: clear to auscultation Airway: Mallampati scale class II Neurological: alert and oriented Last oral intake: >/= 8 hours ASA classification: III Anesthetic plan: proceed Anesthesia type and monitoring: general ETT and standard monitoring Results Review: All pre-operative results and documents have been reviewed as part of the pre-operative evaluation. Informed Consent: The patient's anesthetic plan and its attendant risks and benefits were discussed with the patient/family/POA. Questions were solicited and answers provided to the satisfaction of the patient/family/POA.
[2021-10-28] MEDS: LACTATED RINGERS 1,000 ML 30 ML IV CONT ×2 (06:50→08:44)
[2021-10-28] MEDS: ACETAMINOPHEN 500 MG TABLET 1000 MG PO (06:57)
[2021-10-28] MEDS: KETOROLAC 15 MG/ML VIAL (*BKC) IV PUSH (06:58)
--- NOTE | 2021-10-28 07:11 | PM.IMHP ---
H&P: HPI History of Present Illness Date/Time: 10/28/21 07:11 this patient is a 25-year-old female who desires female sterilization. We have agreed form laparoscopic bilateral salpingectomy. She understands the risks. She understands that injuries may occur during surgery that result in hospitalization, more surgery, and severe illness. She understands the risk of hemorrhage and infection. She denies any chest pain or shortness of breath. She denies any nausea, vomiting, fever, chills. Chief Complaint: Female sterilization Review of Systems Review of Systems: All systems reviewed & are unremarkable except as noted in HPI and below Constitutional: Constitutional: Denies chills, Denies fatigue, Denies fever(s) and Denies weakness Eyes: Eyes: Denies blurry vision, Denies change in vision, Denies loss of peripheral vision, Denies loss of vision, Denies other visual disturbances and Denies eye pain ENT: Denies vertigo, Denies dizziness, Denies hearing loss, Denies mouth pain, Denies nasal obstruction, Denies neck mass and Denies neck pain Cardiovascular: Cardiovascular: Denies chest pain, Denies diaphoresis, Denies syncope, Denies leg edema and Denies dyspnea Respiratory: Respiratory: Denies chest congestion, Denies cough, Denies hemoptysis, Denies dyspnea and Denies wheezing Gastrointestinal: Gastrointestinal: Denies abdominal pain, Denies constipation, Denies diarrhea, Denies nausea and Denies vomiting Genitourinary: Genitourinary: Denies hematuria, Denies change in libido, Denies nocturia, Denies genital lesions, Denies flank pain and Denies urinary urgency Musculoskeletal: Musculoskeletal: Denies abnormal gait, Denies back pain, Denies myalgias, Denies arthralgias, Denies joint swelling, Denies muscle weakness and Denies neck pain Integumentary/Breasts: Skin/Breast: Denies swelling, Denies breast pain, Denies breast mass, Denies dry skin, Denies nipple discharge, Denies unusual bruising and Denies jaundice Neurologic: Denies Neuro-related abnormal movements, Denies Abnormal speech present, Denies abnormal gait, Denies behavioral changes, Denies confusion, Denies vertigo, Denies dizziness, Denies syncope, Denies loss of vision, Denies memory loss, Denies convulsions and Denies weakness Psychiatric: Psychiatric: Denies abnormal sleep pattern, Denies behavioral changes, Denies change in libido, Denies confusion, Denies depression, Denies anhedonia and Denies memory loss Endocrine: Endocrine: Reports no additional endocrine complaints, Denies change in libido and Denies fatigue Hematologic/Lymphatic: Hematologic/Lymphatic: Reports no additional hematologic/lymphatic complaints Allergic/Immunologic: Allergic/Immunologic: Reports no additional allergic/immunologic complaints and Denies wheezing PMFSH Past Medical History Medical History Anxiety and depression GERD (gastroesophageal reflux disease) Kidney stones Morbid obesity Surgical History Surgical History H/O removal of cyst lt wrist H/O removal of cyst foot History of placement of ear tubes Family History Family History Mother Diabetes mellitus Family history of diabetes mellitus in first degree relative Pacemaker Grandparent Family history of elevated blood lipids Diabetes mellitus Sibling Hypertension Social History Social History Smoking status: Current every day smoker Tobacco type: e-cigarettes/vaping Additional smoking assessment comments: VAPS DAILY Alcohol intake: never Substance use: current Substance use type: marijuana Other substance usage details: MARIJUANA MONTHLY Living arrangements: with family Spiritual care concerns: No Meds Home Medications and Allergies Home Medications Medication Instructions Recorded
--- NOTE | 2021-10-28 07:12 | WPDHPUPDATE1 ---
History and Physical Update Update Date/Time: 10/28/21 07:12 History and Physical has been reviewed, including an updated exam of the patient. There are NO changes in the patient's condition. Risks, benefits, and alternatives have been discussed and questions answered. Patient agrees to proceed with procedure.
--- NOTE | 2021-10-28 08:26 | W.PM.PROC2 ---
Procedure Note - Detailed Date of Procedure 10/28/21 Pre-op Diagnosis Vol Sterilization Post-op Diagnosis Same Procedure Performed Laparoscopic bilateral salpingectomy Surgeon Shlomo Toledo MD Anesthesia General Indications Unwanted fertility Findings Normal pelvic anatomy Description of Procedure The patient was taken the operating room. She was prepped and draped in the dorsal lithotomy position after induction of general anesthesia. A 5 mm skin incision was made in the left upper quadrant of the abdominal skin. A 5 mm trocar was inserted the intra-abdominal cavity under direct visualization of the scope. Pneumoperitoneum was achieved. A 5 mm trocar was inserted in the left lower quadrant identical fashion. A 5 mm infraumbilical trocar was inserted in identical fashion as well. The bilateral fallopian tubes were removed. This was done by using a LigaSure cautery. The mesosalpinx adjacent to the tube was cauterized transected with LigaSure. This was initiated in the area the ovary and in a stepwise fashion moved medially to the area of the cornu of the uterus. Once there the fallopian tube was cauterized and transected. This was done in identical fashion on each side. The fallopian tubes were taken out through the left lower quadrant trocar site. The pneumoperitoneum was reduced. The trocars removed. The skin was closed with subcuticular 4 Monocryl and covered with Dermabond. She was taken to cover stable condition. Sponge lap and needle counts were correct x2. Estimated Blood Loss 5 Drains No Packing No Pathology Yes Complications No immediate complications Condition Stable Disposition PACU
[2021-10-28] MEDS: fentaNYL CITRATE INJ (*CRX) 100 MCG/2 ML VIAL 25 MCG IV PUSH ×2 (09:09→09:15)
== END 2021-10-28 10:15 | disposition home or self-care (01) ==
PROVIDERS: PCP Internal Medicine; Visit Provider Obstetrics & Gynecology
PROC: (CPT 49320; principal; 2021-10-28 07:30)
DX: Z30.2 Encounter for sterilization (principal); N73.6 Female pelvic peritoneal adhesions (postinfective); E66.9 Obesity, unspecified; Z68.35 Body mass index [BMI] 35.0-35.9, adult; F17.290 Nicotine dependence, other tobacco product, uncomplicated
CPT/HCPCS: 58661; 88302; A9270; C9803; J0330; J1100; J1885; J2250; J2405; J2704; J2710; J3010; J7120; U0003; U0005

== ENCOUNTER 2021-11-14 16:39 | Emergency (ER) | payer OTHER, SELFPAY | END 2021-11-14 17:04 | disposition left against medical advice (07) | LOC: ANHED 17:12 | PROVIDERS: PCP Obstetrics & Gynecology | DX: Z53.21 Procedure and treatment not carried out due to patient leaving prior to being seen by health care provider (principal) | CPT/HCPCS: 99199 ==

== ENCOUNTER 2022-10-20 10:41 | Emergency (ER) | payer OTHER, SELFPAY ==
--- NOTE | ~2022-10-20 | XR_ITS ---
EXAMINATION: XR ankle RT min 3V DATE: 10/20/2022 10:59 INDICATION: Right ankle pain. Injury. TECHNIQUE: 4 views of right ankle were obtained. COMPARISON: None. FINDINGS: Bone alignment is normal. No fracture. Joint spaces are normal. IMPRESSION: 1. No fracture. Reviewed, dictated and finalized at location A. IMPRESSION: 1. No fracture.
--- NOTE | 2022-10-20 10:42 | ED.LOWEXIN ---
HPI - Extremity Injury (Lower) General Stated Complaint: right ankle pain Time Seen by Provider: 10/20/22 10:42 Source: patient Mode of arrival: ambulatory Limitations: no limitations History of Present Illness HPI Narrative: Annette is a 26-year-old female patient presenting to the clinic today with complaints of right ankle pain x1 week. She reports she inverted her ankle a week ago and re-injured it again yesterday. Is having pain over the right lateral ankle. Related Data Allergies Allergy/AdvReac Type Severity Reaction Status Date / Time No Known Allergies Allergy Verified 10/20/22 10:49 Review of Systems Review of Systems: Pertinent positives per HPI. Patient denies any fever, chills, rash, headache, visual changes, dizziness, cough, runny nose, sore throat, shortness of breath, chest pain, palpitations, nausea, vomiting, diarrhea, constipation, abdominal pain, or any urinary issues. PMFSH Past Medical History Medical History Anxiety and depression GERD (gastroesophageal reflux disease) Kidney stones Morbid obesity Surgical History Surgical History H/O removal of cyst lt wrist H/O removal of cyst foot H/O tubal ligation History of placement of ear tubes Family History Family History Mother Diabetes mellitus Family history of diabetes mellitus in first degree relative Pacemaker Grandparent Family history of elevated blood lipids Diabetes mellitus Sibling Hypertension Social History Social History Smoking status: Former smoker Tobacco type: e-cigarettes/vaping Additional smoking assessment comments: VAPS DAILY Alcohol intake: never Substance use: current Substance use type: marijuana Other substance usage details: MARIJUANA MONTHLY Lack of Transportation: No Lack of Food: Sometimes True Current Housing: I Have Housing Concerned About Future Housing: No Difficulty Paying Gas/Electric Bills: YES Difficulty Paying for Meds: YES Currently Unemployed: YES Education: High School Diploma/GED Difficulty w/ Childcare or Family Care: YES Living arrangements: with family Spiritual care concerns: No Comments At the time of my signature, I reviewed and agree with the nursing past medical, surgical, social, and family history. There is no relevant family history pertinent to the patient complaint. Exam Narrative: General: Well-developed, well nourished, in no apparent distress Head: Normocephalic, atraumatic. Cardio: Regular rate and rhythm, s1 and s2 normal, no murmur appreciated. Resp: Clear to auscultation bilaterally, no rhonchi, rales, wheezing or rubs. Musculoskeletal: No deformity, no swelling noted,tender to palpation over the right lateral malleolus and the lateral posterior ankle, grossly normal range of motion, muscle strength strong and equal, peripheral pulse strong, no edema, no cyanosis, normal gait and station Course Course Emergency Course: Portions of this record may have been created with voice recognition software. Level of Care: Express Care Visit Vital Signs Vital signs: Vital Signs Temperature 36.3 C L 10/20/22 10:49 Pulse Rate 78 10/20/22 10:49 Respiratory Rate 16 10/20/22 10:49 Blood Pressure 123/77 10/20/22 10:49 Pulse Oximetry 99 10/20/22 10:49 Oxygen Delivery Room Air 10/20/22 10:49 Temperature 36.3 C L 10/20/22 10:49 Pulse Rate 78 10/20/22 10:49 Respiratory Rate 16 10/20/22 10:49 Blood Pressure 123/77 10/20/22 10:49 Pulse Oximetry 99 10/20/22 10:49 Oxygen Delivery Room Air 10/20/22 10:49 Vital signs reviewed MDM - Extremity Injury (Lower) MDM Narrative Medical decision making narrative: At the time of visit patient is resting comforta
[2022-10-20 10:49] VITALS: BP 123/77; PULSE 78; RESP 16; TEMP 36.3; O2SAT 99
== END 2022-10-20 11:15 | disposition home or self-care (01) ==
LOC: EXPCOLL 10:44
PROVIDERS: Emergency Provider Nurse Practitioner Family; PCP Nurse Practitioner
DX: S93.401A Sprain of unspecified ligament of right ankle, initial encounter (principal); X58.XXXA Exposure to other specified factors, initial encounter; K21.9 Gastro-esophageal reflux disease without esophagitis; E66.01 Morbid (severe) obesity due to excess calories; Z68.36 Body mass index [BMI] 36.0-36.9, adult
CPT/HCPCS: 73610; 99213; G0463

== ENCOUNTER 2023-02-22 09:40 | Emergency (ER) | payer OTHER, SELFPAY ==
[2023-02-22 09:49] VITALS: BP 113/66; PULSE 86; RESP 16; TEMP 36.6; O2SAT 99
--- NOTE | 2023-02-22 09:58 | ED.URI ---
HPI - URI/Sore Throat General Chief Complaint: Upper Respiratory Infection Stated Complaint: Sore Throat Time Seen by Provider: 02/22/23 09:58 History of Present Illness HPI Narrative: 27 y/o female presented for c/o sore throat for 3 days. Endorses painful swallow. Reports nasal congestion and drainage, and decreased appetite. Using cough drops and Motrin. Denies sick contacts. Denies abdominal pain, sob, wheezing, n/v/d/f/c. Related Data Home Medications Medication Instructions Recorded Confirmed fluoxetine 10 mg capsule 10 mg DIRECTED 02/22/23 02/22/23 Allergies Allergy/AdvReac Type Severity Reaction Status Date / Time No Known Allergies Allergy Verified 10/20/22 10:49 Review of Systems Review of Systems: CONSTITUTIONAL: Denies body aches, fever, chills, or sweats. EYES: Denies visual changes, redness, or discharge. ENT: reports sore throat, rhinorrhea, congestion, denies otalgia. CARDIOVASCULAR: Denies chest pain, palpitations, or edema. RESPIRATORY: Denies dyspnea. GASTROINTESTINAL: Denies abdominal pain, nausea, vomiting, or diarrhea. SKIN: Denies rash, itching, or wounds. MUSCULOSKELETAL: Denies back pain, joint pain, or myalgia. NEUROLOGIC: Denies headache PMFSH Past Medical History Medical History Anxiety and depression GERD (gastroesophageal reflux disease) Kidney stones Morbid obesity Surgical History Surgical History H/O removal of cyst lt wrist H/O removal of cyst foot H/O tubal ligation History of placement of ear tubes Family History Family History Mother Diabetes mellitus Family history of diabetes mellitus in first degree relative Pacemaker Grandparent Family history of elevated blood lipids Diabetes mellitus Sibling Hypertension Social History Social History Smoking status: Former smoker Tobacco type: e-cigarettes/vaping Additional smoking assessment comments: VAPS DAILY Alcohol intake: never Substance use: current Substance use type: marijuana Other substance usage details: MARIJUANA MONTHLY Lack of Transportation: No Lack of Food: Sometimes True Current Housing: I Have Housing Concerned About Future Housing: No Difficulty Paying Gas/Electric Bills: YES Difficulty Paying for Meds: YES Currently Unemployed: YES Education: High School Diploma/GED Difficulty w/ Childcare or Family Care: YES Living arrangements: with family Spiritual care concerns: No Exam Narrative: GENERAL: mildly Ill-appearing, no acute distress. EYES: conjunctivae clear ENT: Mucous membranes moist. TMs pearly oscar with normal light reflex bilaterally; left T-tube in place; no tragal tenderness. Oropharynx severely erythematous with Tonsils enlarged 3+ with exudate. No drooling, no hoarseness, no trismus, uvula midline. No tripod positioning, hot potato voice, or soft palate swelling. NECK: Supple. bilateral anterior cervical lymphadenopathy CHEST: Clear to auscultation, breath sounds equal. No respiratory distress, speaks in full sentences. HEART: Regular rate and rhythm. No murmur heard. SKIN: Warm, dry, no rash. NEURO: Alert and oriented x3. Course Course Emergency Course: Patient is aware of diagnosis, understands and agrees to treatment plan. Anticipatory guidance given. Patient agrees to follow-up as directed and is aware of reasons to seek care at the emergency department. Portions of this record may have been created with voice recognition software Level of Care: Express Care Visit Vital Signs Vital signs: Vital Signs Temperature 97.9 F 02/22/23 09:49 Pulse Rate 86 02/22/23 09:49 Respiratory Rate 16 02/22/23 09:49 Blood Pressure 113/66 02/22/23 09:49 Pulse Oximetry 99 02/22/23 09
== END 2023-02-22 10:09 | disposition home or self-care (01) ==
PROVIDERS: Emergency Provider Nurse Practitioner Family; PCP Nurse Practitioner
DX: J02.0 Streptococcal pharyngitis (principal); F17.290 Nicotine dependence, other tobacco product, uncomplicated; F12.90 Cannabis use, unspecified, uncomplicated; K21.9 Gastro-esophageal reflux disease without esophagitis; E66.01 Morbid (severe) obesity due to excess calories; Z68.32 Body mass index [BMI] 32.0-32.9, adult; F41.9 Anxiety disorder, unspecified; F32.A Depression, unspecified
CPT/HCPCS: 87880; 99213; G0463

== ENCOUNTER 2023-08-03 05:41 | Emergency (ER) | payer OTHER, SELFPAY ==
[2023-08-03] VITALS (13 sets, daily range): BP systolic 101–144; BP diastolic 61–98; PULSE 44–110; RESP 12–36; TEMP 36.9; O2SAT 95–100
--- NOTE | ~2023-08-03 | XR_ITS ---
Portable chest x-ray Comparison: None Clinical History: Cough Findings: Lungs are clear, without focal consolidation or pleural effusion. Cardiomediastinal silho uette is unremarkable. Bones and soft tissues are unremarkable. Impression: Normal chest. Reviewed, dictated and finalized at location . IL[facility] STRATEGIST Impression: Normal chest.
--- NOTE | ~2023-08-03 | CT_ITS ---
EXAMINATION: CTA chest PE abdomen pel DATE: 08/03/2023 08:17 INDICATION: Chest pain. Elevated d-dimer. Covid-positive. TECHNIQUE: Computed tomography angiography (CTA) of the chest was performed with 100 mL Omnipaque-350 intravenous contrast timed to evaluate the pulmonary arteries. Coronal maximum intensity projection 3D-reconstructions were created by the technologist. Automated exposure control and iterative reconst ruction technique were employed. Exam dose: 952.17 mGy-cm total exam DLP. COMPARISON: 08/03/2023 portable AP chest FINDINGS: There is diagnostic contrast enhancement of the pulmonary arteries and no evidence of pulmo nary embolism. Normal heart size. No thoracic aortic aneurysm. No hilar or mediastinal mass lesion or lymphadenopathy. No pulmonary infiltrate or consolidation or pulmonary mass lesion. Small sliding hiatal hernia. Normal morphology of the adrenal glands. Included upper abdominal structures are unremarkable. Included skeletal structures are unremarkable. IMPRESSION: Negative examination; no evidence of pulmonary embolism Reviewed, dictated and finalized at Location A. Reviewed, dictated and finalized at location B. UTER TRAIN OPERATOR
--- NOTE | 2023-08-03 06:19 | ECG_ITS ---
Measurements Intervals [place] Rate: 41 P: 34 MA: 136 QRS: 63 QRSD: 84 T: 41 QT: 513 QTc: 425 Interpretive Statements SINUS BRADYCARDIA ABNORMAL ECG NO PREVIOUS ECG AVAILABLE FOR COMPARISON Electronically Signed On 08-03-2023 6:42:17 [facility]FFER by Tito Dent D.O.
--- NOTE | 2023-08-03 06:21 | ED.NAVMDI ---
HPI - Nausea/Vomiting/Diarrhea General Chief complaint: Nausea/Vomiting/Diarrhea <Og Brennan DO - Last Filed: 08/03/23 07:17> Stated complaint: vomiting, covid positive <Og Brennan DO - Last Filed: 08/03/23 07:17> Time Seen by Provider: 08/03/23 06:16 <Og Brennan DO - Last Filed: 08/03/23 07:17> Source: patient and family <DO Janine Amin Last Filed: 08/03/23 07:17> Limitations: no limitations <Og Brennan DO - Last Filed: 08/03/23 07:17> History of Present Illness HPI Narrative: Patient is a 27-year-old female presents to the emergency department with multiple complaints. Patient states that she was diagnosed with COVID this morning after she took an at-home COVID test that was positive. Patient also states she developed nausea and vomiting this morning with nonbloody nonbilious emesis and multiple episodes have persistent nausea. Patient also states she has been experiencing abdominal cramps in her epigastric region, no history of distant past, nonradiating, has not tried anything for the cramps, cramps or constant and has not noticed anything making them better or worse. Patient also states she is having chest tightness started this morning. Patient states she has been having brown diarrhea for the past couple days multiple episodes daily. Patient denies urinary discomfort, fever, recent injuries, sick contacts, numbness, weakness, hematuria, history kidney stones, dysuria, rash. Patient denies alcohol or illicit drug use. Patient admits to regular daily cannabis use. Patient admits to taking [id number] Tylenol Severe cold and flu for the past few days she has been experiencing nasal congestion in addition to a cough that is minimally productive of any sputum. <DO Janine Amin Last Filed: 08/03/23 07:17> Related Data Home medications: Home Medications Medication Instructions Recorded Confirmed fluoxetine 10 mg capsule 10 mg DIRECTED 02/22/23 02/22/23 <Og Brennan DO - Last Filed: 08/03/23 07:17> Allergies/Adverse reactions: Allergies Allergy/AdvReac Type Severity Reaction Status Date / Time No Known Allergies Allergy Verified 08/03/23 06:58 <Og Brennan DO - Last Filed: 08/03/23 07:17> Review of Systems Review of Systems: A 10 system review of systems was completed on the patient and is negative except for what is stated in the HPI. Nursing and ancillary documentation was reviewed. <Og Brennan DO - Last Filed: 08/03/23 07:17> PMFSH Past Medical History Medical History: Medical History Anxiety and depression GERD (gastroesophageal reflux disease) Kidney stones Morbid obesity <Og Brennan DO - Last Filed: 08/03/23 07:17> Surgical History Surgical History: Surgical History H/O removal of cyst lt wrist H/O removal of cyst foot H/O tubal ligation History of placement of ear tubes <Og Brennan DO - Last Filed: 08/03/23 07:17> Family History Family History: Family History Mother Diabetes mellitus Family history of diabetes mellitus in first degree relative Pacemaker Grandparent Family history of elevated blood lipids Diabetes mellitus Sibling Hypertension <Og Brennan DO - Last Filed: 08/03/23 07:17> Social History Social History: Social History Smoking status: Former smoker Tobacco type: e-cigarettes/vaping Additional smoking assessment comments: VAPS DAILY Alcohol intake: never Substance use: current Substance use type: marijuana Other substance usage details: MARIJUANA MONTHLY Lack of Transportation: No Lack of Food: Sometimes True Current Housing: I Have Housing Concerned [place]
[2023-08-03] MEDS: FAMOTIDINE 20 MG/2 ML VIAL IV PUSH (06:44)
[2023-08-03] MEDS: DICYCLOMINE HCL INJ 20 MG/2 ML VIAL IM (06:44)
[2023-08-03] MEDS: ONDANSETRON INJ 4 MG/2 ML VIAL IV PUSH (06:44)
[2023-08-03] MEDS: SODIUM CHLORIDE 0.9% IV 1,000 ML 999 ML IV CONT (06:44)
[2023-08-03 07:04] LABS: Basophils Percent Auto 0.2 % (0.2-1.2); Eosinophils Percent Auto 0.1 % (0-4.4); Hematocrit 40.2 % (37.0-47.0); Hemoglobin 13.7 g/dL (12.0-15.0); Immature Granulocyte Absolute 0.05 K/mm3 (0.00-0.031); Immature Granulocyte Percent A 0.5 % (0-0.5); Lymphocytes Absolute Auto 1.15 K/mm3 (0.9-3.2); Lymphocytes Percent Auto 11.1 % (18.3-44.2); Mean Corpuscular HGB Conc 34.1 g/dl (32-36); Mean Corpuscular Hemoglobin 31.2 pg (26-34); Mean Corpuscular Volume 91.6 fl (80-100); Monocytes Absolute Auto 0.3 K/mm3 (0.1-0.6); Monocytes Percent Auto 3.1 % (2.6-8.5); Neutrophils Absolute Auto 8.8 K/mm3 (1.3-6.7); Platelet Count Result 199 k/mm3 (150-375); Red Blood Count 4.39 M/mm3 (4.2-5.4); Red Cell Distribution Width 11.9 % (11.5-14.5); White Blood Count 10.4 K/mm3 (4.5-10.0)
[2023-08-03 07:10] LABS: Appearance Urine Cloudy (Clear); Bacteria Urine 4+ /hpf; Bilirubin Urine Negative (Negative); Color Urine Yellow (Yellow); Glucose Urine UA Negative (Negative); Ketones Urine Trace mg/dL (Negative); Leukocyte Esterase Ur 1+ LEU/UL (Negative); Nitrate Urine Negative (Negative); Non Pathogenic Casts 0-2; Protein Urine 1+ mg/dL (Negative); Specific Grav Ur 1.027 (1.001-1.035); Squamous Epithelial Cell Urine Moderate /hpf (Few); WBC Urine 21-50 /hpf; pH Urine 6.5 (5.0-9.0)
[2023-08-03 07:14] LABS: Alanine Aminotransferase 13 U/L (6-35); Albumin Level 4.1 g/dL (3.5-5.1); Alkaline Phosphatase 64 U/L (38-126); Anion Gap 8 mmol/L (8-16); Aspartate Amino Transferase 20 U/L (14-36); Bilirubin,Total 0.5 mg/dL (0.2-1.3); Blood Urea Nitrogen 16 mg/dL (7-17); Calcium 8.9 mg/dL (8.4-10.2); Carbon Dioxide 25 mmol/L (22-30); Chloride 105 mmol/L (98-107); Estimated CRCL calculation 81 ml/min; Estimated Glomerular Filt Rate > 60; Glucose 125 mg/dL (65-110); Lipase 76 U/L (23-300); Magnesium 1.6 mg/dL (1.6-2.3); Potassium 3.8 mmol/L (3.4-5.0); Sodium 138 mmol/L (137-145)
[2023-08-03 07:14] LABS: Lactic Acid Reflex 1.7 mmol/L (0.7-2.0)
[2023-08-03 07:16] LABS: Add Urine Microscopic? YES
[2023-08-03 07:17] LABS: Prothrombin Time 13.5 Seconds (11.1-14.7)
[2023-08-03 07:18] LABS: Partial Thromboplastin Time 30.2 SECONDS (22.3-36.8)
[2023-08-03 07:25] LABS: Troponin I < 0.012 ng/mL (0.000-0.034)
[2023-08-03 07:34] LABS: D Dimer 0.72 ug/mL (<0.48)
[2023-08-03] MEDS: diphenhydrAMINE HCl INJ 50 MG/ML VIAL IV PUSH (07:59)
[2023-08-03] MEDS: METOCLOPRAMIDE HCL INJ 10 MG/2 ML VIAL IV PUSH (07:59)
[2023-08-03] MEDS: SODIUM CHLORIDE 0.9% IV 50 ML 400 ML (08:00)
[2023-08-03 08:28] LABS: Influenza A QL RT-PCR Negative (Negative); Influenza B QL RT-PCR Negative (Negative); RSV RNA, RT-PCR Negative (Negative); SARS-CoV-2 RNA PCR Positive (Negative)
== END 2023-08-03 09:13 | disposition home or self-care (01) ==
PROVIDERS: Student in an Organized Health Care Education/Training Program; Emergency Provider Emergency Medicine; PCP Nurse Practitioner
DX: U07.1 COVID-19 (principal); K52.9 Noninfective gastroenteritis and colitis, unspecified; R11.15 Cyclical vomiting syndrome unrelated to migraine; R00.1 Bradycardia, unspecified; F17.290 Nicotine dependence, other tobacco product, uncomplicated; F41.9 Anxiety disorder, unspecified; F32.A Depression, unspecified; K21.9 Gastro-esophageal reflux disease without esophagitis; Z87.442 Personal history of urinary calculi
CPT/HCPCS: 36415; 71045; 71275; 74177; 80053; 81001; 83605; 83690; 83735; 84484; 85025; 85380; 85610; 85730; 87077; 87086; 87186; 87637; 93005; 96361; 96372; 96374; 96375; 99284; J0500; J1200; J2405; J2765; J7030; Q9967

== ENCOUNTER 2023-09-30 12:43 | Outpatient (CLI) | payer OTHER, SELFPAY ==
[2023-09-30 14:49] LABS: Basophils Percent Auto 0.4 % (0.2-1.2); Eosinophils Absolute Auto 0.1 K/mm3 (0-0.3); Hematocrit 39.8 % (37.0-47.0); Hemoglobin 12.9 g/dL (12.0-15.0); Immature Granulocyte Absolute 0.01 K/mm3 (0.00-0.031); Immature Granulocyte Percent A 0.1 % (0-0.5); Lymphocytes Percent Auto 28.9 % (18.3-44.2); Mean Corpuscular HGB Conc 32.4 g/dl (32-36); Mean Corpuscular Hemoglobin 30.9 pg (26-34); Mean Corpuscular Volume 95.2 fl (80-100); Mean Platelet Volume 10.8 fl (7.4-10.4); Monocytes Absolute Auto 0.3 K/mm3 (0.1-0.6); Monocytes Percent Auto 4.3 % (2.6-8.5); Neutrophils Absolute Auto 4.7 K/mm3 (1.3-6.7); Neutrophils Percent Auto 65.3 % (45.5-73.1); Platelet Count Result 247 k/mm3 (150-375); Red Blood Count 4.18 M/mm3 (4.2-5.4); Red Cell Distribution Width 12.2 % (11.5-14.5); White Blood Count 7.3 K/mm3 (4.5-10.0)
[2023-09-30 14:54] LABS: Cholesterol 148 mg/dL (0-200); HDL Direct 44 mg/dL; Triglycerides 52 mg/dL (<150)
[2023-09-30 15:12] LABS: LDL Cholesterol Direct 87 mg/dL
[2023-09-30 15:28] LABS: Thyroid Stimulating Hormone 0.688 uIU/mL (0.465-4.680)
[2023-09-30 16:04] LABS: Folic Acid 11.2 ng/mL (2.76->20)
== END 2023-09-30 12:44 | disposition home or self-care (01) ==
LOC: ANHGOSHLAB 12:45
PROVIDERS: PCP Nurse Practitioner; Visit Provider Nurse Practitioner
DX: Z13.220 Encounter for screening for lipoid disorders (principal); R20.0 Anesthesia of skin; G25.81 Restless legs syndrome
CPT/HCPCS: 36415; 80061; 82607; 82728; 82746; 84443; 85025

== ENCOUNTER → 2025-05-07 15:34 | Outpatient (CLI) | payer OTHER, SELFPAY ==
--- NOTE | ~2025-05-07 | XR_ITS ---
XR shoulder RT min 2V 05/07/2025 15:57 INDICATION: Right shoulder pain PROCEDURE: 4 views right shoulder COMPARISON: No prior studies for comparison. FINDINGS: Fracture, dislocation or subluxation is not identified. The soft tissues appear within normal limits. No foreign bodies are identified. IMPRESSION: 1: NO ACUTE BONE OR JOINT ABNORMALITY IDENTIFIED. Reviewed, dictated and finalized at location O.
--- OUTSIDE RECORDS SUMMARY | 2025-05-07 19:25 | XMS_ITS | Clinical Summary ---
Author Organization [facility] Address [address] [place] [address] Care Team Providers Care Helmet Hat Puncher Name Role Phone Cyrus Mg DO Unavailable [phone] Cyrus Mg DO Primary Care Provider [phone] Source Comments [facility],non-owned Affiliates and Associated Physician Practices is amultiple site organization consisting of ambulatory clinics and hospital sitesin [place], [place], [place] and [place]. This disclosure is being madepursuant to the Care Everywhere program and may not contain all information available regarding this patient. Last updated 18.[facility] Allergies No known active allergies Medications * This document contains information received from the source organization and may not represent a complete record from that organization. * Be aware that medications may not be up to date on this document. Alwaysverify current medications with the patient. SUMAtriptan (Imitrex) 50 MG tablet Take 1 (one) tablet by mouth once daily as needed 2 Active Naproxen Sodium (ALEVE PO) Take 1 tablet by mouth once daily Active cetirizine (ZyrTEC) 10 MG tablet Take 1 (one) tablet by mouth once daily 90 tablet 4 4 Active EPINEPHrine (Epipen) 0.3 MG/0.3ML auto-injector pen Inject 0.3 mL into muscle as needed for Anaphylaxis 0.6 mL 4 Active FLUoxetine (PROzac) 10 MG tablet Take 1.5 (one and one-half) tablets by mouth once daily Active allergy injection Weekly through [facility] Active SYRINGE-NEEDLE , DISP, 3 ML 25G X 5/8 3 ML MISC As directed for immunotherapy 30 Each 2 4 Active azelastine (Astelin) 0.1 % nasal sprayIndicatio ns:Seasonal allergic rhinitis due to pollen Sherman 1 (one) spray into each nostril 2 times daily 30 mL 3 4 Active fluticasone propionate (Flonase) 50 MCG/ACT nasal sprayIndicatio ns:Seasonal allergic rhinitis due to pollen Sherman 2 (two) sprays into each nostril once daily 16 g 3 4 Active Active Problems Problem Noted Date Diagnosed Date Perennial allergic rhinitis 08/30/2023 screening for feta l growth retardation using ultrasonics 08/13/2014 Overview (04/17/2022): IMO 2021 Update Placenta previa without hemorrhage, antepartum 1 09/05/2013 Bipolar 1 disorder 05/20/2014 Tobacco use disorder complic ating , childbirth, or puerperium, antepartum 05/20/2014 Overview (04/17/2015): RUQ pain 01/27/2013 Immunizations Immunization Administration Dates Next Due DTP HIB, HISTORIC VACCINE 02/24/1995,11/1993,03/30/1994,02/08 DTaP VACCINE IM (6wk-6yrs) 12/17/1997 HEP A PEDS 2 DOSE 10/11/2011 HEP B VACCINE, PED/ADOL 09/29/1994,02/08/1994, Human Papilloma Virus Christel valent Vaccine 02/13/2008 Influenza Vaccine Whole 05/09/2009 MENINGOCOCCAL ACWY (MCV4P) VAC IM 02/13/2008 MMR VACCINE 12/17/1997,02/24/1995 POLIO OPV 12/17/1997, 4,03/30/1994,02/08 TDAP, HISTORIC VACCINE 07/02/2008 Family History Medical History Relation Name Comments Alcohol abuse Father Asthma Mother Bipolar Disorder Mother Depression Mother Diabetes Mother Heart Failure Mother Hypercholesterolemia Mother Migraine Mother Asthma Sister Relation Name Status Comments Father Mother Sister Social History Tobacco Use Types Packs/Day Years Used Date Smoking Tobacco: Former Cigarettes 1 8 0 07/18/2005 - 07/18/2013 Smokeless Tobacco: Never Tobacco Cessation:Counseling Given: Not Answered Alcohol Use Standard Drinks/Week Comments Yes 0 (1 standard drink = 0.6 oz pur e alcohol) AUDIT-C Answer Date Recorded Q1: How often do you have a drink containing alc ohol? Monthly or less 03/24/2023 Q2: How many drinks containi ng alcohol do you have on a typical day when you are drinking? 1 or 2 03/24/2023 Q3: How often do you have si x or more drinks on one occasion? Never 03/24/2023 Comments No Sex and Gender Information Value Date Recorded Sex Assigned at Not on file Legal Sex Female 1:02 PM CDT Gender Identity Not on file Sexual Orientation Not on file Last Filed Vital Signs Vital Sign Reading Time Taken Comments Blood Pressure 111/76 08/01/2023 2:45 PM [employer]IVER Pulse 80 08/01/2023 2:45 PM [employer]IVER Temperature 35.8 C (96.5 F) 03/24/2023 9:55 AM CDT Respiratory Rate 16 03/24/2023 9:55 AM CDT Oxygen Saturation 99% 03/24/2023 9:55 AM CDT Inhaled Oxygen Concentration - - Weight 80.3 kg (177 lb) 01/03/2024 12:36 PM CDT Height 157.5 cm (5' 2) 01/03/2024 12:36 PM CDT Body Mass Index 32.37 01/03/2024 12:36 PM CDT Plan of Treatment Health Maintenance Due Date Last Done Comments HPV VACCINE (2 - 2-dose series) 08/15/2008 02/13/2008 HIV SCREENING 2008 HEPATITIS C SCREENING 12/08/2011 DTAP/TDAP/TD VACCINES (7 - Td or Tdap) 07/02/2018 07/02/2008, 12/17/1997, 02/24/1995, Additional history exists COVID-19 VACCINE ( - season) 2025 INFLUENZA VACCINE (#1) 2025 05/09/2009 PAP SMEAR 11/12/2025 11/12/2022 ZOSTER VACCINE (1 of 2) 12/13/2043 HEPATITIS B VACCINE Completed 09/29/1994, 02/08/1994, 1993 HIB VACCINE Completed 02/24/1995, 11/1993, 03/30/1994, Additional history exists MENINGOCOCCAL GROUPS A/C/Y/W VACCINE Aged Out 02/13/2008 No longer eligible based on patient's age to complete this topic MENINGOCOCCAL (Group B) VACCINE SHARED DECISION-MAKING Aged Out No longer eligible based on patient's age to complete this topic PNEUMOCOCCAL VACCINE Aged Out No long er eligible based on patient's age to complete this topic Insurance [facility] AETNA MEDICAID [facility] Advance Directives * Full Code (Latest Code Status on File) Date Activated Date Inactivated Comments 05/07/2009 9:38 PM 05/13/2009 6:44 AM Care Teams Helmet Hat Puncher Relationship Specialty Start Date End Date Cyrus Mg DO PCP - General Internal Medicine 03/24/23 Cyrus Mg DO Internal Medicine 01/27/13
== END ==
LOC: EXPTRAD 15:35
PROVIDERS: PCP Nurse Practitioner Family; Visit Provider Nurse Practitioner Family
DX: M25.511 Pain in right shoulder (principal)
CPT/HCPCS: 73030